=== PATIENT | male | born 1955 | race Caucasian/White ===

== ENCOUNTER 2019-02-23 14:09 | Inpatient (IN) | payer OTHER ==
[~2019-02-23] VITALS: Ht 177.8 cm; Wt 62.4 kg
[2019-02-23] MEDS ORDERED: SODIUM CHLORIDE 0.9% 1,000 ML IV ONE (14:28)
[2019-02-23] MEDS ORDERED: PLEASE ENTER HEIGHT AND WEIGHT MC SCH (15:00)
[2019-02-23 15:11] LABS: BASOPHILS # (AUTO) 0.12 x10^3/uL (0-0.1); BASOPHILS % (AUTO) 1 % (0-1); EOSINOPHILS % (AUTO) 0 % (1-7); LYMPHOCYTES # (AUTO) 0.89 x10^3/uL (1-3.4); LYMPHOCYTES % (AUTO) 10 % (22-44); MD NO; MEAN CORPUSCULAR HEMOGLOBIN 33.1 pg (27.5-34.5); MEAN CORPUSCULAR HGB CONC 33.5 g/dL (33.2-36.2); MEAN CORPUSCULAR VOLUME 98.8 fL (81-97); MEAN PLATELET VOLUME 7.5 fL (7.4-10.4); MONOCYTES # (AUTO) 0.79 x10^3/uL (0.2-0.8); MONOCYTES % (AUTO) 9 % (2-9); NEUTROPHILS # (AUTO) 7.42 x10^3/uL (1.8-6.8); NEUTROPHILS % (AUTO) 81 % (42-75); PLATELET COUNT 315 x10^3/uL (130-400); RED CELL DISTRIBUTION WIDTH 13.6 % (9.4-14.8)
--- NOTE | 2019-02-23 15:15 | NUR ---
THIS IS A 63 YO M SENT FROM [facility] FOR POSSIBLE PNA, LUNG MASS AND SOBX4 DAYS. PATIENT IS IN NO ACUTE DISTRESS. PATIENT RESTING ON GURNEY CONVERSING WITH STAFF. CALL LIGHT IN REACH. DENIES FURTHER NEEDS AT THIS TIME.
[2019-02-23 15:22] LABS: ALBUMIN 3.6 g/dL (3.4-5.0); ANION GAP 10 mmol/L (5-15); CALCIUM 8.1 mg/dL (8.5-10.1); CHLORIDE 100 mmol/L (98-107); CREATININE 0.66 mg/dL (0.7-1.3)
--- NOTE | 2019-02-23 15:22 | NUR ---
PIV STARTED, LABS DRAWN, 1L NS STARTED.
[2019-02-23] MEDS ORDERED: MORPHINE SULFATE 4 MG/ML, 1ML ONE (15:29)
[2019-02-23] MEDS ORDERED: ACETAMINOPHEN 500 MG TABLET ONE (15:29)
[2019-02-23] MEDS ORDERED: MORPHINE SULFATE 4 MG/ML, 1ML IVPush PRN (15:30)
[2019-02-23] MEDS ORDERED: ACETAMINOPHEN 500 MG TABLET PO ONE (15:30)
--- NOTE | 2019-02-23 15:35 | NUR ---
PATIENT MEDICATED PER EMAR.
--- NOTE | 2019-02-23 15:38 | NUR ---
O2 SAT 89% ROOM AIR. PATIENT PLACED ON 2L NC. NOW 92%.
[2019-02-23 15:53] LABS: ALBUMIN 3.6 g/dL (3.4-5.0); BILIRUBIN, DIRECT 0.3 mg/dL (0.1-0.2)
[2019-02-23 15:56] LABS: BILIRUBIN,INDIRECT 0.8 mg/dL (0.0-2.0); BILIRUBIN,TOTAL 1.1 mg/dL (0.2-1.0); TOTAL PROTEIN 7.4 g/dL (6.4-8.2)
[2019-02-23] MEDS ORDERED: OMNIPAQUE 350 MG/ML, 100ML BOTTLE ONE (16:11)
[2019-02-23] MEDS ORDERED: CEFTRIAXONE PMX 1GM/50ML 50 ML ONE (16:48)
[2019-02-23] MEDS ORDERED: CEFTRIAXONE PMX 1GM/50ML 50 ML IV ONE (17:00)
[2019-02-23] MEDS ORDERED: AZITHROMYCIN 500 MG in SODIUM CHLORIDE 0.9% 250 ML IV ONE (17:00)
[2019-02-23] MEDS ORDERED: ONDANSETRON 2MG/ML, 2ML IVPush PRN (17:30)
[2019-02-23] MEDS ORDERED: DOCUSATE 100 MG CAPSULE PO PRN (17:30)
[2019-02-23] MEDS ORDERED: LABETALOL 5MG/ML, 20ML IVPush PRN (17:30)
[2019-02-23] MEDS ORDERED: POLYETHYLENE GLYCOL 17 GM PACKET PO PRN (17:30)
[2019-02-23] MEDS ORDERED: METOCLOPRAMIDE 5 MG/ML, 2ML IVPush PRN (17:30)
[2019-02-23] MEDS ORDERED: hydrALAzine 20 MG/ML, 1ML IVPush PRN (17:30)
[2019-02-23] MEDS ORDERED: POTASSIUM CHLORIDE 20 MEQ TAB.ER.PRT PO ONE (18:00)
[2019-02-23] MEDS ORDERED: NS + 20MEQ KCL 1,000 ML IV SCH (18:00)
[2019-02-23 20:18] VITALS: BP 149/94
[2019-02-23] MEDS: NICOTINE 21 MG/24 HR PATCH.TD24 TD SCH (20:46)
[2019-02-23] MEDS: HEPARIN 5,000 UNITS/ML, 1ML SQ SCH (20:47)
[2019-02-24] MEDS ORDERED: GUAIFENESIN/DM 200-20MG, 10ML UDC PO PRN
[2019-02-24] MEDS ORDERED: TEMAZEPAM 15 MG CAPSULE PO PRN
[2019-02-24 00:22] VITALS: BP 165/112
[2019-02-24 00:56] VITALS: BP 146/92
[2019-02-24] MEDS ORDERED: LABETALOL 5 MG/ML SYR. (IV ONLY) IVPush PRN (01:30)
[2019-02-24] MEDS: HEPARIN 5,000 UNITS/ML, 1ML SQ SCH ×3 (02:13→22:22)
[2019-02-24 04:58] LABS: BASOPHILS # (AUTO) 0.14 x10^3/uL (0-0.1); BASOPHILS % (AUTO) 1 % (0-1); EOSINOPHILS # (AUTO) 0.01 x10^3/uL (0-0.4); EOSINOPHILS % (AUTO) 0 % (1-7); LYMPHOCYTES # (AUTO) 0.89 x10^3/uL (1-3.4); LYMPHOCYTES % (AUTO) 6 % (22-44); MD NO; MEAN CORPUSCULAR HEMOGLOBIN 32.7 pg (27.5-34.5); MEAN CORPUSCULAR HGB CONC 32.7 g/dL (33.2-36.2); MEAN CORPUSCULAR VOLUME 99.9 fL (81-97); MEAN PLATELET VOLUME 8.1 fL (7.4-10.4); MONOCYTES # (AUTO) 0.58 x10^3/uL (0.2-0.8); MONOCYTES % (AUTO) 4 % (2-9); NEUTROPHILS # (AUTO) 12.72 x10^3/uL (1.8-6.8); NEUTROPHILS % (AUTO) 89 % (42-75); PLATELET COUNT 284 x10^3/uL (130-400); RED CELL DISTRIBUTION WIDTH 13.9 % (9.4-14.8)
[2019-02-24 05:00] LABS: ALBUMIN 3.4 g/dL (3.4-5.0); ANION GAP 5 mmol/L (5-15); CHLORIDE 103 mmol/L (98-107)
[2019-02-24 05:03] LABS: ALANINE AMINOTRANSFERASE 15 U/L (12-78); ALKALINE PHOSPHATASE 181 U/L (45-117); BILIRUBIN,TOTAL 1.5 mg/dL (0.2-1.0); CREATININE 0.66 mg/dL (0.7-1.3); TOTAL PROTEIN 7.2 g/dL (6.4-8.2)
[2019-02-24] MEDS ORDERED: ALBUTEROL SULFATE 2.5 MG/3 ML ONE (06:51)
[2019-02-24] MEDS: ALBUTEROL SULFATE 2.5 MG/3 ML NPPB SCH ×3 (06:55→16:00)
[2019-02-24] MEDS ORDERED: methylPREDNISolone SOD SUCC 40 MG/ML IV ONE (07:00)
[2019-02-24] MEDS ORDERED: FUROSEMIDE 40 MG/4 ML IV ONE ×2 (07:00→15:30)
[2019-02-24 07:20] VITALS: BP 154/105
[2019-02-24] MEDS ORDERED: MAGNESIUM SULFATE PMX 2GM/50ML 50 ML IV ONE (07:30)
[2019-02-24] MEDS ORDERED: ALBUTEROL SULFATE 2.5 MG/3 ML NPPB PRN (07:30)
[2019-02-24] MEDS: methylPREDNISolone SOD SUCC 125 MG/2 ML IVPush SCH ×3 (07:54→20:10)
[2019-02-24] MEDS ORDERED: AZITHROMYCIN 250 MG TABLET PO SCH (09:00)
[2019-02-24] MEDS: PIPERACILLIN/TAZO/PMX 3.375GM 50 ML IV SCH ×3 (09:51→23:26)
[2019-02-24] MEDS: NEUTRA PHOS K 250 MG TABLET PO SCH ×2 (09:51→20:10)
[2019-02-24 12:13] VITALS: BP 149/94
[2019-02-24] MEDS ORDERED: FUROSEMIDE 20 MG/2 ML ONE (15:17)
[2019-02-24] MEDS ORDERED: VANCOMYCIN PER PHARMACY MC PRN (15:30)
[2019-02-24] MEDS ORDERED: PHARMACOKINETIC MONITORING MC PRN (16:00)
[2019-02-24] MEDS ORDERED: PHARMACOKINETIC CONSULTATION MC ONE (16:00)
[2019-02-24] MEDS ORDERED: CEFTRIAXONE PMX 1GM/50ML 50 ML IV SCH (17:00)
[2019-02-24] MEDS ORDERED: SODIUM CHLORIDE 0.9%, 500ML IVBOLUS ONE (17:00)
[2019-02-24] MEDS: NICOTINE 21 MG/24 HR PATCH.TD24 TD SCH (17:51)
[2019-02-24] MEDS: VANCOMYCIN 1,300 MG in SODIUM CHLORIDE 0.9% 250 ML IV SCH (18:37)
[2019-02-25] VITALS (7 sets, daily range): BP systolic 120–145; BP diastolic 74–90
[2019-02-25] MEDS: methylPREDNISolone SOD SUCC 125 MG/2 ML IVPush SCH ×4 (02:14→20:47)
[2019-02-25] MEDS ORDERED: LORazepam 2 MG/ML, 1ML IVPush ONE (04:00)
[2019-02-25] MEDS ORDERED: LORazepam 2 MG/ML, 1ML ONE (04:06)
[2019-02-25 04:21] LABS: BASOPHILS # (AUTO) 0.29 x10^3/uL (0-0.1); BASOPHILS % (AUTO) 2 % (0-1); EOSINOPHILS % (AUTO) 0 % (1-7); LYMPHOCYTES # (AUTO) 0.67 x10^3/uL (1-3.4); LYMPHOCYTES % (AUTO) 5 % (22-44); MD NO; MEAN CORPUSCULAR HEMOGLOBIN 33.2 pg (27.5-34.5); MEAN CORPUSCULAR HGB CONC 33.3 g/dL (33.2-36.2); MEAN CORPUSCULAR VOLUME 99.9 fL (81-97); MEAN PLATELET VOLUME 7.9 fL (7.4-10.4); MONOCYTES # (AUTO) 0.39 x10^3/uL (0.2-0.8); MONOCYTES % (AUTO) 3 % (2-9); NEUTROPHILS % (AUTO) 90 % (42-75); PLATELET COUNT 294 x10^3/uL (130-400); RED BLOOD COUNT 5.04 x10^6/uL (4.38-5.82); RED CELL DISTRIBUTION WIDTH 14.1 % (9.4-14.8)
[2019-02-25] MEDS: VANCOMYCIN 1,300 MG in SODIUM CHLORIDE 0.9% 250 ML IV SCH (04:25)
[2019-02-25 04:36] LABS: ALANINE AMINOTRANSFERASE 16 U/L (12-78); ALBUMIN 3.4 g/dL (3.4-5.0); ANION GAP 10 mmol/L (5-15); CALCIUM 8.4 mg/dL (8.5-10.1); CHLORIDE 103 mmol/L (98-107); CREATININE 0.76 mg/dL (0.7-1.3)
[2019-02-25 04:39] LABS: ALKALINE PHOSPHATASE 150 U/L (45-117); BILIRUBIN,TOTAL 1.3 mg/dL (0.2-1.0); TOTAL PROTEIN 7.8 g/dL (6.4-8.2)
[2019-02-25] MEDS: HEPARIN 5,000 UNITS/ML, 1ML SQ SCH ×3 (05:59→20:48)
[2019-02-25] MEDS: PIPERACILLIN/TAZO/PMX 3.375GM 50 ML IV SCH (06:01)
[2019-02-25] MEDS: ALBUTEROL SULFATE 2.5 MG/3 ML NPPB SCH ×3 (07:55→19:55)
[2019-02-25] MEDS: POTASSIUM CHLORIDE 20 MEQ TAB.ER.PRT PO SCH ×2 (08:20→16:40)
[2019-02-25] MEDS: CEFTRIAXONE PMX 1GM/50ML 50 ML IV SCH (08:20)
[2019-02-25] MEDS: AZITHROMYCIN 500 MG in SODIUM CHLORIDE 0.9% 250 ML IV SCH (09:05)
[2019-02-25] MEDS: FUROSEMIDE 40 MG/4 ML IV SCH (16:41)
[2019-02-25] MEDS: NICOTINE 21 MG/24 HR PATCH.TD24 TD SCH (16:42)
[2019-02-26 00:54] VITALS: BP 135/83
[2019-02-26] MEDS: methylPREDNISolone SOD SUCC 125 MG/2 ML IVPush SCH ×4 (03:45→20:17)
[2019-02-26] MEDS: HEPARIN 5,000 UNITS/ML, 1ML SQ SCH ×3 (05:19→20:16)
[2019-02-26 06:39] VITALS: BP 115/63
[2019-02-26 06:40] LABS: ANION GAP 6 mmol/L (5-15); CALCIUM 8.2 mg/dL (8.5-10.1); CHLORIDE 105 mmol/L (98-107)
[2019-02-26 06:41] LABS: CREATININE 0.68 mg/dL (0.7-1.3)
[2019-02-26] MEDS: CEFTRIAXONE PMX 1GM/50ML 50 ML IV SCH (07:49)
[2019-02-26] MEDS ORDERED: POTASSIUM CHLORIDE 20 MEQ TAB.ER.PRT PO ONE (08:30)
[2019-02-26] MEDS: ALBUTEROL SULFATE 2.5 MG/3 ML NPPB SCH ×4 (08:45→20:36)
[2019-02-26] MEDS: AZITHROMYCIN 500 MG in SODIUM CHLORIDE 0.9% 250 ML IV SCH (09:42)
[2019-02-26] MEDS: FUROSEMIDE 40 MG/4 ML IV SCH ×2 (09:42→16:50)
[2019-02-26 15:03] VITALS: BP 128/80
[2019-02-26] MEDS: NICOTINE 21 MG/24 HR PATCH.TD24 TD SCH (16:51)
[2019-02-26 19:10] VITALS: BP 130/82
[2019-02-27 00:39] VITALS: BP 138/84
[2019-02-27] MEDS: methylPREDNISolone SOD SUCC 125 MG/2 ML IVPush SCH (01:58)
[2019-02-27] MEDS: HEPARIN 5,000 UNITS/ML, 1ML SQ SCH ×3 (03:58→20:59)
[2019-02-27 06:24] LABS: CHLORIDE 104 mmol/L (98-107)
[2019-02-27 06:28] LABS: ANION GAP 5 mmol/L (5-15); CALCIUM 8.4 mg/dL (8.5-10.1); CREATININE 0.65 mg/dL (0.7-1.3)
[2019-02-27] MEDS: ALBUTEROL SULFATE 2.5 MG/3 ML NPPB SCH ×4 (07:21→20:41)
[2019-02-27] MEDS: POTASSIUM CHLORIDE 20 MEQ TAB.ER.PRT PO SCH ×2 (07:37→17:05)
[2019-02-27] MEDS: CEFTRIAXONE PMX 1GM/50ML 50 ML IV SCH (07:37)
[2019-02-27] MEDS: FUROSEMIDE 40 MG/4 ML IV SCH ×2 (07:38→17:05)
[2019-02-27] MEDS: methylPREDNISolone SOD SUCC 40 MG/ML IVPush SCH ×2 (07:38→20:59)
[2019-02-27 07:41] VITALS: BP 141/82
[2019-02-27] MEDS: AZITHROMYCIN 500 MG in SODIUM CHLORIDE 0.9% 250 ML IV SCH (11:15)
[2019-02-27 13:04] VITALS: BP 121/72
[2019-02-27] MEDS: NICOTINE 21 MG/24 HR PATCH.TD24 TD SCH (17:05)
[2019-02-27 18:52] VITALS: BP 126/81
[2019-02-28 00:55] VITALS: BP 136/85
[2019-02-28] MEDS: HEPARIN 5,000 UNITS/ML, 1ML SQ SCH ×3 (04:33→20:18)
[2019-02-28 06:01] LABS: ANION GAP 4 mmol/L (5-15); CALCIUM 8.6 mg/dL (8.5-10.1); CHLORIDE 102 mmol/L (98-107); CREATININE 0.68 mg/dL (0.7-1.3)
[2019-02-28 06:11] LABS: MD YES; MEAN CORPUSCULAR HGB CONC 33.3 g/dL (33.2-36.2); MEAN CORPUSCULAR VOLUME 99.3 fL (81-97); MEAN PLATELET VOLUME 7.7 fL (7.4-10.4); PLATELET COUNT 231 x10^3/uL (130-400); RED BLOOD COUNT 4.25 x10^6/uL (4.38-5.82); RED CELL DISTRIBUTION WIDTH 13.8 % (9.4-14.8)
[2019-02-28 06:13] LABS: BAND#(MANUAL) 0.08 x10^3/uL; BANDS%(MANUAL) 1 % (0-7); LYMPH#(MANUAL) 0.49 x10^3/uL (1-3.4); LYMPHS% (MANUAL) 6 % (22-44); MONOS#(MANUAL) 0.41 x10^3/uL (0.3-2.7); MONOS% (MANUAL) 5 % (2-9); REACTIVE LYMPHS # (MANUAL) 0.08 x10^3/uL (0-0); REACTIVE LYMPHS % (MANUAL) 1 % (0-0); SEG#(MANUAL) 7.13 x10^3/uL (1.8-6.8); SEGS% (MANUAL) 87 % (42-75)
[2019-02-28 06:14] LABS: <PLATELET ESTIMATE> ADEQUATE; <PLT MORPHOLOGY> NORMAL PLT MORPH; <RBC MORPHOLOGY> NORMAL
[2019-02-28] MEDS: ALBUTEROL SULFATE 2.5 MG/3 ML NPPB SCH (07:00)
[2019-02-28] MEDS: FUROSEMIDE 40 MG/4 ML IV SCH ×2 (07:14→17:13)
[2019-02-28] MEDS: CEFTRIAXONE PMX 1GM/50ML 50 ML IV SCH (07:14)
[2019-02-28 08:18] VITALS: BP 135/84
[2019-02-28] MEDS: methylPREDNISolone SOD SUCC 40 MG/ML IVPush SCH ×2 (09:51→20:18)
[2019-02-28] MEDS ORDERED: LIDOCAINE 1%, 10ML ONE (09:51)
[2019-02-28] MEDS: AZITHROMYCIN 500 MG in SODIUM CHLORIDE 0.9% 250 ML IV SCH (10:56)
[2019-02-28 14:21] VITALS: BP 131/82
[2019-02-28] MEDS: NICOTINE 21 MG/24 HR PATCH.TD24 TD SCH (17:12)
[2019-02-28 19:25] VITALS: BP 125/80
[2019-03-01 01:57] VITALS: BP 132/80
[2019-03-01] MEDS: HEPARIN 5,000 UNITS/ML, 1ML SQ SCH ×3 (04:48→20:19)
[2019-03-01 06:39] VITALS: BP 136/84
[2019-03-01 07:03] LABS: BASOPHILS # (AUTO) 0.12 x10^3/uL (0-0.1); BASOPHILS % (AUTO) 1 % (0-1); EOSINOPHILS # (AUTO) 0.01 x10^3/uL (0-0.4); EOSINOPHILS % (AUTO) 0 % (1-7); LYMPHOCYTES # (AUTO) 0.72 x10^3/uL (1-3.4); LYMPHOCYTES % (AUTO) 8 % (22-44); MD NO; MEAN CORPUSCULAR HEMOGLOBIN 32.7 pg (27.5-34.5); MEAN CORPUSCULAR HGB CONC 32.7 g/dL (33.2-36.2); MEAN CORPUSCULAR VOLUME 99.8 fL (81-97); MEAN PLATELET VOLUME 8.4 fL (7.4-10.4); MONOCYTES # (AUTO) 0.76 x10^3/uL (0.2-0.8); MONOCYTES % (AUTO) 8 % (2-9); NEUTROPHILS # (AUTO) 7.38 x10^3/uL (1.8-6.8); NEUTROPHILS % (AUTO) 82 % (42-75); PLATELET COUNT 222 x10^3/uL (130-400); RED BLOOD COUNT 4.83 x10^6/uL (4.38-5.82); RED CELL DISTRIBUTION WIDTH 13.7 % (9.4-14.8)
[2019-03-01 07:21] LABS: CHLORIDE 100 mmol/L (98-107)
[2019-03-01 07:30] LABS: ANION GAP 4 mmol/L (5-15); CALCIUM 8.9 mg/dL (8.5-10.1); CREATININE 0.59 mg/dL (0.7-1.3)
[2019-03-01] MEDS: CEFTRIAXONE PMX 1GM/50ML 50 ML IV SCH (08:06)
[2019-03-01] MEDS: methylPREDNISolone SOD SUCC 40 MG/ML IVPush SCH (08:06)
[2019-03-01] MEDS: FUROSEMIDE 40 MG/4 ML IV SCH ×2 (08:06→17:14)
[2019-03-01] MEDS: AZITHROMYCIN 500 MG in SODIUM CHLORIDE 0.9% 250 ML IV SCH (09:13)
[2019-03-01 12:19] VITALS: BP 120/76
[2019-03-01] MEDS: CARVEDILOL 3.125 MG TABLET PO SCH (17:14)
[2019-03-01] MEDS: NICOTINE 21 MG/24 HR PATCH.TD24 TD SCH (17:14)
[2019-03-01 19:23] VITALS: BP 123/82
[2019-03-02 00:35] VITALS: BP 115/75
[2019-03-02] MEDS: HEPARIN 5,000 UNITS/ML, 1ML SQ SCH ×4 (03:30→20:03)
[2019-03-02] MEDS: CARVEDILOL 3.125 MG TABLET PO SCH (05:58)
[2019-03-02 06:27] LABS: BASOPHILS # (AUTO) 0.17 x10^3/uL (0-0.1); BASOPHILS % (AUTO) 2 % (0-1); EOSINOPHILS # (AUTO) 0.14 x10^3/uL (0-0.4); EOSINOPHILS % (AUTO) 2 % (1-7); LYMPHOCYTES # (AUTO) 1.29 x10^3/uL (1-3.4); LYMPHOCYTES % (AUTO) 14 % (22-44); MD NO; MEAN CORPUSCULAR HEMOGLOBIN 32.7 pg (27.5-34.5); MEAN CORPUSCULAR HGB CONC 32.6 g/dL (33.2-36.2); MEAN CORPUSCULAR VOLUME 100.4 fL (81-97); MEAN PLATELET VOLUME 7.9 fL (7.4-10.4); MONOCYTES # (AUTO) 1.44 x10^3/uL (0.2-0.8); MONOCYTES % (AUTO) 16 % (2-9); NEUTROPHILS # (AUTO) 6.08 x10^3/uL (1.8-6.8); NEUTROPHILS % (AUTO) 67 % (42-75); PLATELET COUNT 247 x10^3/uL (130-400); RED BLOOD COUNT 4.97 x10^6/uL (4.38-5.82); RED CELL DISTRIBUTION WIDTH 13.9 % (9.4-14.8)
[2019-03-02 06:40] LABS: ANION GAP 4 mmol/L (5-15); CALCIUM 8.7 mg/dL (8.5-10.1); CHLORIDE 97 mmol/L (98-107); CREATININE 0.78 mg/dL (0.7-1.3)
[2019-03-02 07:47] VITALS: BP 116/80
[2019-03-02] MEDS: CEFTRIAXONE PMX 1GM/50ML 50 ML IV SCH (08:00)
[2019-03-02] MEDS: FUROSEMIDE 40 MG/4 ML IV SCH ×2 (08:00→17:12)
[2019-03-02] MEDS ORDERED: methylPREDNISolone SOD SUCC 40 MG/ML IVPush SCH (09:00)
[2019-03-02] MEDS: AZITHROMYCIN 500 MG in SODIUM CHLORIDE 0.9% 250 ML IV SCH (09:45)
[2019-03-02] MEDS: LISINOPRIL 10 MG TABLET PO SCH (12:30)
[2019-03-02] MEDS ORDERED: GADOTERATE 7.5 MMOL/15 ML SYR ONE (13:41)
[2019-03-02 14:17] VITALS: BP 103/74
[2019-03-02] MEDS: NICOTINE 21 MG/24 HR PATCH.TD24 TD SCH (17:12)
[2019-03-02] MEDS: CARVEDILOL 6.25 MG TABLET PO SCH ×2 (17:13→17:48)
[2019-03-02 19:01] VITALS: BP 110/77
[2019-03-03] MEDS: HEPARIN 5,000 UNITS/ML, 1ML SQ SCH ×3 (00:37→20:14)
[2019-03-03 01:10] VITALS: BP 118/74
[2019-03-03 05:47] LABS: ANION GAP 3 mmol/L (5-15); CALCIUM 8.7 mg/dL (8.5-10.1); CHLORIDE 99 mmol/L (98-107)
[2019-03-03 05:54] LABS: CHOL/HDL RATIO 2.6; CHOLESTEROL, TOTAL 162 mg/dL (140-239); CREATININE 0.79 mg/dL (0.7-1.3); HDL CHOL % 38 % (26-37); HDL CHOLESTEROL (DIRECT) 62 mg/dL (40-60); LDL CHOLESTEROL,CALCULATED 82 mg/dL (54-169); LDL/HDL RATIO 1.3 (0.5-3.0); TRIGLYCERIDES 90 mg/dL (50-200); VLDL CHOLESTEROL 18 mg/dL (0-25)
[2019-03-03] MEDS: CARVEDILOL 6.25 MG TABLET PO SCH ×2 (05:58→17:07)
[2019-03-03 08:03] VITALS: BP 73/74
[2019-03-03] MEDS ORDERED: NALOXONE 1 MG/ML, 2ML ONE (08:32)
[2019-03-03] MEDS ORDERED: FENTANYL PF 100 MCG/2ML ONE (08:32)
[2019-03-03] MEDS ORDERED: FLUMAZENIL 0.1 MG/1 ML, 5ML ONE (08:32)
[2019-03-03] MEDS ORDERED: MIDAZOLAM 1 MG/ML, 5ML ONE (08:32)
[2019-03-03] MEDS ORDERED: LIDOCAINE 1%, 10ML ONE (09:10)
[2019-03-03 10:37] VITALS: BP 122/78
[2019-03-03] MEDS: LISINOPRIL 10 MG TABLET PO SCH (10:39)
[2019-03-03] MEDS: FUROSEMIDE 40 MG/4 ML IV SCH (10:39)
[2019-03-03] MEDS: AZITHROMYCIN 500 MG in SODIUM CHLORIDE 0.9% 250 ML IV SCH (10:49)
[2019-03-03] MEDS: CEFTRIAXONE PMX 1GM/50ML 50 ML IV SCH (11:41)
[2019-03-03 14:00] VITALS: BP 95/60
[2019-03-03] MEDS: OXYcodone IR 5MG TABLET PO PRN ×2 (15:03→20:38)
[2019-03-03] MEDS: NICOTINE 21 MG/24 HR PATCH.TD24 TD SCH (17:07)
[2019-03-03 20:32] VITALS: BP 92/58
[2019-03-03] MEDS: ATORVASTATIN 40 MG TABLET PO SCH (20:38)
[2019-03-04] MEDS: OXYcodone IR 5MG TABLET PO PRN ×4 (00:42→20:34)
[2019-03-04 02:02] VITALS: BP 100/61
[2019-03-04] MEDS: HEPARIN 5,000 UNITS/ML, 1ML SQ SCH ×3 (04:30→20:33)
[2019-03-04] MEDS: CARVEDILOL 6.25 MG TABLET PO SCH ×2 (05:53→17:04)
[2019-03-04 08:00] VITALS: BP 110/74
[2019-03-04] MEDS: LISINOPRIL 10 MG TABLET PO SCH (09:10)
[2019-03-04] MEDS: FUROSEMIDE 40 MG TABLET PO SCH (09:11)
[2019-03-04 12:38] VITALS: BP 93/54
[2019-03-04] MEDS: NICOTINE 21 MG/24 HR PATCH.TD24 TD SCH (17:03)
[2019-03-04 19:47] VITALS: BP 101/62
[2019-03-04] MEDS: ATORVASTATIN 40 MG TABLET PO SCH (20:33)
[2019-03-05 01:52] VITALS: BP 113/68
[2019-03-05] MEDS: HEPARIN 5,000 UNITS/ML, 1ML SQ SCH ×3 (04:41→20:32)
[2019-03-05] MEDS: CARVEDILOL 6.25 MG TABLET PO SCH ×2 (05:34→17:29)
[2019-03-05] MEDS: OXYcodone IR 5MG TABLET PO PRN ×2 (05:35→20:32)
[2019-03-05 08:46] VITALS: BP 96/67
[2019-03-05] MEDS: LISINOPRIL 10 MG TABLET PO SCH (09:00)
[2019-03-05] MEDS: FUROSEMIDE 40 MG TABLET PO SCH (09:55)
[2019-03-05 15:59] VITALS: BP 103/62
[2019-03-05] MEDS: NICOTINE 21 MG/24 HR PATCH.TD24 TD SCH (17:30)
[2019-03-05 19:10] VITALS: BP 104/61
[2019-03-05] MEDS: ATORVASTATIN 40 MG TABLET PO SCH (20:32)
[2019-03-06 01:55] VITALS: BP 122/76
[2019-03-06] MEDS: HEPARIN 5,000 UNITS/ML, 1ML SQ SCH ×3 (04:45→21:27)
[2019-03-06] MEDS: CARVEDILOL 6.25 MG TABLET PO SCH ×2 (06:20→17:51)
[2019-03-06 08:34] VITALS: BP 116/74
[2019-03-06] MEDS: LISINOPRIL 10 MG TABLET PO SCH (08:44)
[2019-03-06] MEDS: FUROSEMIDE 40 MG TABLET PO SCH (08:44)
[2019-03-06] MEDS ORDERED: REGADENOSON 0.4 MG/5 ML SYRINGE ONE (11:49)
[2019-03-06] MEDS: OXYcodone IR 5MG TABLET PO PRN ×2 (13:27→21:26)
[2019-03-06 13:41] VITALS: BP 125/77
[2019-03-06] MEDS: NICOTINE 21 MG/24 HR PATCH.TD24 TD SCH (17:52)
[2019-03-06 18:45] VITALS: BP 111/71
[2019-03-06] MEDS: ATORVASTATIN 40 MG TABLET PO SCH (21:26)
[2019-03-07 00:02] VITALS: BP 115/72
[2019-03-07] MEDS: OXYcodone IR 5MG TABLET PO PRN ×2 (02:30→21:27)
[2019-03-07 05:03] LABS: BASOPHILS # (AUTO) 0.31 x10^3/uL (0-0.1); BASOPHILS % (AUTO) 3 % (0-1); EOSINOPHILS # (AUTO) 0.08 x10^3/uL (0-0.4); EOSINOPHILS % (AUTO) 1 % (1-7); LYMPHOCYTES # (AUTO) 1.13 x10^3/uL (1-3.4); LYMPHOCYTES % (AUTO) 10 % (22-44); MD NO; MEAN CORPUSCULAR HEMOGLOBIN 32.5 pg (27.5-34.5); MEAN CORPUSCULAR VOLUME 98.5 fL (81-97); MEAN PLATELET VOLUME 7.6 fL (7.4-10.4); MONOCYTES # (AUTO) 1.44 x10^3/uL (0.2-0.8); MONOCYTES % (AUTO) 13 % (2-9); NEUTROPHILS # (AUTO) 8.06 x10^3/uL (1.8-6.8); NEUTROPHILS % (AUTO) 73 % (42-75); PLATELET COUNT 329 x10^3/uL (130-400); RED BLOOD COUNT 4.29 x10^6/uL (4.38-5.82); RED CELL DISTRIBUTION WIDTH 13.9 % (9.4-14.8)
[2019-03-07 05:24] LABS: ALANINE AMINOTRANSFERASE 58 U/L (12-78); ALBUMIN 3.1 g/dL (3.4-5.0); ALKALINE PHOSPHATASE 66 U/L (45-117); BILIRUBIN,TOTAL 0.9 mg/dL (0.2-1.0); CALCIUM 8.8 mg/dL (8.5-10.1); TOTAL PROTEIN 6.4 g/dL (6.4-8.2)
[2019-03-07 05:41] LABS: ANION GAP 5 mmol/L (5-15); CHLORIDE 99 mmol/L (98-107)
[2019-03-07] MEDS: HEPARIN 5,000 UNITS/ML, 1ML SQ SCH ×3 (06:18→23:13)
[2019-03-07] MEDS: CARVEDILOL 6.25 MG TABLET PO SCH ×2 (06:18→17:24)
[2019-03-07 06:21] VITALS: BP 117/72
[2019-03-07] MEDS: FUROSEMIDE 40 MG TABLET PO SCH (08:58)
[2019-03-07] MEDS: LISINOPRIL 10 MG TABLET PO SCH (08:58)
[2019-03-07 13:02] VITALS: BP 92/59
[2019-03-07] MEDS: NICOTINE 21 MG/24 HR PATCH.TD24 TD SCH (17:24)
[2019-03-07 20:14] VITALS: BP 97/55
[2019-03-07] MEDS: ATORVASTATIN 40 MG TABLET PO SCH (21:27)
[2019-03-08 02:11] VITALS: BP 100/62
[2019-03-08 05:43] VITALS: BP 107/69
[2019-03-08] MEDS: CARVEDILOL 6.25 MG TABLET PO SCH (05:46)
[2019-03-08 06:30] VITALS: BP 114/69
[2019-03-08] MEDS: HEPARIN 5,000 UNITS/ML, 1ML SQ SCH (07:51)
[2019-03-08] MEDS: LISINOPRIL 10 MG TABLET PO SCH (08:46)
[2019-03-08] MEDS: FUROSEMIDE 40 MG TABLET PO SCH (08:46)
[2019-03-08] MEDS ORDERED: CARV6.2512 PO (11:12)
[2019-03-08] MEDS ORDERED: PRED5TAB PO (11:12)
[2019-03-08] MEDS ORDERED: LISI-167 PO (11:12)
[2019-03-08] MEDS ORDERED: FURO40TA6 PO (11:12)
[2019-03-08] MEDS ORDERED: ATOR40TA78 PO (11:12)
== END 2019-03-08 13:10 | disposition home or self-care (01) | DRG 180 ==
LOC: ED 16:19 → EDIP 16:38 → 4NE 18:12 → 4NW 20:43 → 4WST 02-24 08:04 → CCU 02-24 15:43 → 4WST 02-25 18:21 → DCLOUNGE 03-08 13:02
PROVIDERS: ADMIT Family Medicine; ATTEND Internal Medicine
PROC: 0W993ZZ Drainage of Right Pleural Cavity, Percutaneous Approach (ICD-10-PCS; principal; 2019-02-28)
PROC: 0BBK3ZX Excision of Right Lung, Percutaneous Approach, Diagnostic (ICD-10-PCS; 2019-03-03)
PROC: 0W9930Z Drainage of Right Pleural Cavity with Drainage Device, Percutaneous Approach (ICD-10-PCS; 2019-03-03)
DX: C34.91 Malignant neoplasm of unspecified part of right bronchus or lung (principal); I50.43 Acute on chronic combined systolic (congestive) and diastolic (congestive) heart failure; J18.9 Pneumonia, unspecified organism; J96.01 Acute respiratory failure with hypoxia; C79.31 Secondary malignant neoplasm of brain; E87.4 Mixed disorder of acid-base balance; I42.9 Cardiomyopathy, unspecified; J44.0 Chronic obstructive pulmonary disease with (acute) lower respiratory infection; J93.9 Pneumothorax, unspecified; C78.1 Secondary malignant neoplasm of mediastinum; Z80.0 Family history of malignant neoplasm of digestive organs; Z82.3 Family history of stroke; E83.39 Other disorders of phosphorus metabolism; E86.0 Dehydration; E87.6 Hypokalemia; F10.10 Alcohol abuse, uncomplicated; Y90.9 Presence of alcohol in blood, level not specified; F17.210 Nicotine dependence, cigarettes, uncomplicated; J98.4 Other disorders of lung; R56.9 Unspecified convulsions
CPT/HCPCS: 32555; 32557; 36415; 36600; 82150; 82945; 83986; 84145; 89051; 93017; 99285; J3490; J7613; 32405; 32551; 70450; 70553; 71045; 71275; 77012; 78452; 80048; 80053; 80061; 80076; 82040; 82803; 82962; 83605; 83615; 83735; 84100; 84157; 84484; 85025; 87040; 87070; 87075; 87081; 87205; 88112; 88305; 88333; 88341; 88342; 93005; 93306; 94640; 99156; 99157; G0378; J0456; J0696; J1644; J1940; J2250; J2543; J2785; J3010; J3370; J3480; Q9967; A9502; A9575; C1729; J0360; J2060; J2270; J2310; J2920; J2930; J3475; J7030; J7050; J7512

== ENCOUNTER 2019-03-15 09:39 | Outpatient (CLI) | payer OTHER ==
[~2019-03-15 09:39] MED LIST: ATOR40TA78 PO; CARV6.2512 PO; FURO40TA6 PO; LISI-167 PO; PRED5TAB PO
[2019-03-15] MEDS ORDERED: GADOTERATE 7.5 MMOL/15 ML SYR ONE (10:41)
[2019-07-09] MEDS ORDERED: AZIT500T10 PO ×2 (09:31)
[2019-07-09] MEDS ORDERED: CEFD300C37 PO ×2 (09:31)
[2019-07-13] MEDS ORDERED: CEFD300C37 PO (11:41)
[2019-07-13] MEDS ORDERED: AZIT500T10 PO (11:41)
== END 2019-03-15 23:59 | disposition home or self-care (01) ==
LOC: CFH 09:39
PROVIDERS: ATTEND Radiology Radiation Oncology
DX: C79.31 Secondary malignant neoplasm of brain (principal); G31.89 Other specified degenerative diseases of nervous system
CPT/HCPCS: 70553; A9575

== ENCOUNTER 2019-04-21 11:35 | Day surgery (SDC) | payer OTHER ==
[~2019-04-21] VITALS: Ht 177.8 cm; Wt 64.6 kg
[2019-04-21] MEDS ORDERED: SODIUM CHLORIDE 0.9% 1,000 ML IV SCH (12:01)
[2019-04-21] MEDS ORDERED: LIDOCAINE 1%, 10ML ONE (12:22)
[2019-04-21] MEDS ORDERED: LIDOCAINE 1%, 20ML ONE (12:22)
[2019-04-21] MEDS ORDERED: CEFAZOLIN PMX 1GM/50ML 50 ML IV ONE (12:30)
[2019-04-21 12:34] VITALS: BP 132/82
[2019-04-21] MEDS ORDERED: LISI40TA PO (12:45)
[2019-04-21] MEDS ORDERED: TRILOGY INH (12:45)
[2019-04-21] MEDS ORDERED: FURO-92 PO (12:45)
[2019-04-21] MEDS ORDERED: CARV6.2512 PO (12:45)
[2019-04-21] MEDS ORDERED: ATOR40TA78 PO (12:45)
[2019-04-21] MEDS ORDERED: FLUMAZENIL 0.1 MG/1 ML, 5ML ONE (13:03)
[2019-04-21] MEDS ORDERED: NALOXONE 1 MG/ML, 2ML ONE (13:03)
[2019-04-21] MEDS ORDERED: FENTANYL PF 100 MCG/2ML ONE (13:03)
[2019-04-21] MEDS ORDERED: MIDAZOLAM 1 MG/ML, 5ML ONE (13:03)
== END 2019-04-21 15:00 | disposition home or self-care (01) ==
LOC: OUT 11:35
PROVIDERS: ATTEND Specialist
DX: C34.31 Malignant neoplasm of lower lobe, right bronchus or lung (principal); C79.31 Secondary malignant neoplasm of brain; I11.0 Hypertensive heart disease with heart failure; I50.9 Heart failure, unspecified; J90 Pleural effusion, not elsewhere classified; F17.210 Nicotine dependence, cigarettes, uncomplicated; Z79.899 Other long term (current) drug therapy; Z80.0 Family history of malignant neoplasm of digestive organs; Z82.3 Family history of stroke
CPT/HCPCS: 36561; 76937; 77001; 99156; 99157; C1788; C1894; J0690; J1642; J2250; J3010; J7030; J2310

== ENCOUNTER → 2019-04-28 | Outpatient (CLI) | payer OTHER ==
[~2019-04-28] MED LIST changes: +FURO-92 PO; +LISI40TA PO; +OMNIPAQUE 350 MG/ML, 100ML BOTTLE ONE; +TRILOGY INH
== END | disposition home or self-care (01) ==
LOC: CFH 08:27
PROVIDERS: ATTEND Specialist
DX: C34.31 Malignant neoplasm of lower lobe, right bronchus or lung (principal); C79.89 Secondary malignant neoplasm of other specified sites; S22.039A Unspecified fracture of third thoracic vertebra, initial encounter for closed fracture; S22.049A Unspecified fracture of fourth thoracic vertebra, initial encounter for closed fracture; S22.079A Unspecified fracture of T9-T10 vertebra, initial encounter for closed fracture; S22.089A Unspecified fracture of T11-T12 vertebra, initial encounter for closed fracture; S32.019A Unspecified fracture of first lumbar vertebra, initial encounter for closed fracture; J43.2 Centrilobular emphysema; R91.8 Other nonspecific abnormal finding of lung field; R59.9 Enlarged lymph nodes, unspecified; E04.1 Nontoxic single thyroid nodule; Y99.8 Other external cause status; R59.0 Localized enlarged lymph nodes; M85.88 Other specified disorders of bone density and structure, other site; X58.XXXA Exposure to other specified factors, initial encounter; Y93.89 Activity, other specified; Y92.89 Other specified places as the place of occurrence of the external cause
CPT/HCPCS: 71260; 74160; Q9967

== ENCOUNTER 2019-05-15 10:50 | Emergency (ER) | payer OTHER ==
[~2019-05-15] VITALS: Ht 177.8 cm; Wt 61.6 kg
[~2019-05-15 10:50] MED LIST changes: -OMNIPAQUE 350 MG/ML, 100ML BOTTLE ONE
[2019-05-15] MEDS ORDERED: POTA20TA91 PO (11:20)
[2019-05-15] MEDS ORDERED: FURO-93 PO (11:20)
[2019-05-15] MEDS ORDERED: FOLI-17 PO (11:20)
[2019-05-15] MEDS ORDERED: SPIR25TA5 PO (11:20)
[2019-05-15] MEDS ORDERED: LISI-167 PO (11:20)
--- NOTE | 2019-05-15 11:21 | NUR ---
[facility], sent in for abn kidney/lfts. hx lungs ca/brain ca stg 4. does not know his wbc count. 6 sessions radiation in apr, chemo started may 04. port R chest. c/o some sob but no worse than normal. lungs ctab, on ra at home. a&ox4 gcs 15 nad call monae in reach med rec upd awaiting md. as
--- NOTE | 2019-05-15 12:30 | NUR ---
awaiting xr/lab resutls. nad. call monae in reach. as
[2019-05-15 12:34] LABS: MICROSCOPIC NOT IND
[2019-05-15 12:37] LABS: CULTURE INDICATED? NO
[2019-05-15 13:10] LABS: ALANINE AMINOTRANSFERASE 95 U/L (12-78); ANION GAP 6 mmol/L (5-15); CALCIUM 8.2 mg/dL (8.5-10.1); CHLORIDE 99 mmol/L (98-107); CREATININE 1.11 mg/dL (0.7-1.3)
[2019-05-15 13:13] LABS: ALKALINE PHOSPHATASE 117 U/L (45-117); BILIRUBIN,TOTAL 0.6 mg/dL (0.2-1.0); TOTAL PROTEIN 6.9 g/dL (6.4-8.2)
--- NOTE | 2019-05-15 13:23 | NUR ---
us pending. lfts elevated per md, has records from pts outpt labwork. as
[2019-05-15 13:32] VITALS: BP 121/57
[2019-05-15 13:43] LABS: MEAN CORPUSCULAR HEMOGLOBIN 34.8 pg (27.5-34.5); MEAN CORPUSCULAR HGB CONC 34.3 g/dL (33.2-36.2); MEAN CORPUSCULAR VOLUME 101.6 fL (81-97); MEAN PLATELET VOLUME 7.2 fL (7.4-10.4); PLATELET COUNT 83 x10^3/uL (130-400); RED CELL DISTRIBUTION WIDTH 17.6 % (9.4-14.8)
[2019-05-15 13:44] LABS: MD YES
--- NOTE | 2019-05-15 13:46 | NUR ---
us neg. cbc pending. as
[2019-05-15 13:52] LABS: SEG#(MANUAL) 0.92 x10^3/uL (1.8-6.8); SEGS% (MANUAL) 28 % (42-75)
[2019-05-15 13:54] LABS: BAND#(MANUAL) 0.07 x10^3/uL; BANDS%(MANUAL) 2 % (0-7); BASOS#(MANUAL) 0.07 x10^3/uL (0-0.1); BASOS% (MANUAL) 2 % (0-1); LYMPH#(MANUAL) 1.32 x10^3/uL (1-3.4); LYMPHS% (MANUAL) 40 % (22-44); MONOS#(MANUAL) 0.83 x10^3/uL (0.3-2.7); MONOS% (MANUAL) 25 % (2-9); MYELOCYTES% (MANUAL) 3 % (0-0); NRBC % (MANUAL) 3 % (0-1)
[2019-05-15 13:55] LABS: ANISOCYTOSIS 1+
[2019-05-15 13:56] LABS: POLYCHROMASIA 1+
[2019-05-15 13:57] LABS: TOXIC GRAN 1+
[2019-05-15 13:58] LABS: <PLATELET ESTIMATE> DECREASED; <PLT MORPHOLOGY> NORMAL PLT MORPH
== END 2019-05-15 14:02 | disposition home or self-care (01) ==
LOC: ED 13:56
DX: N28.9 Disorder of kidney and ureter, unspecified (principal); B19.10 Unspecified viral hepatitis B without hepatic coma; F17.200 Nicotine dependence, unspecified, uncomplicated; I11.0 Hypertensive heart disease with heart failure; I50.9 Heart failure, unspecified; C34.90 Malignant neoplasm of unspecified part of unspecified bronchus or lung
CPT/HCPCS: 36415; 76700; 80053; 81003; 85025; 99284

== ENCOUNTER 2019-06-20 08:41 | Inpatient (IN) | payer OTHER ==
[~2019-06-20] VITALS: Ht 177.8 cm; Wt 58.8 kg
[~2019-06-20 08:41] MED LIST changes: +FOLI-17 PO; +FURO-93 PO; +POTA20TA91 PO; +SPIR25TA5 PO
[2019-06-20] MEDS ORDERED: FLUT1BLS3 IH (09:22)
[2019-06-20] MEDS ORDERED: ONDA8TAB9 PO (09:23)
[2019-06-20] MEDS ORDERED: LOPE2CAP PO (09:23)
--- NOTE | 2019-06-20 09:34 | NUR ---
REPORT FROM JORDAN RN, PT RESTING IN [facility] WITH CALL LIGHT WITHIN REACH. LAB AND XRAY AT BEDSIDE
[2019-06-20 09:56] LABS: ALANINE AMINOTRANSFERASE 89 U/L (12-78); ANION GAP 6 mmol/L (5-15); CHLORIDE 87 mmol/L (98-107); CREATININE 0.82 mg/dL (0.7-1.3)
[2019-06-20 09:59] LABS: MEAN CORPUSCULAR HEMOGLOBIN 36.7 pg (27.5-34.5); MEAN CORPUSCULAR HGB CONC 33.9 g/dL (33.2-36.2); MEAN CORPUSCULAR VOLUME 108.3 fL (81-97); MEAN PLATELET VOLUME 7.7 fL (7.4-10.4); PLATELET COUNT 149 x10^3/uL (130-400); RED CELL DISTRIBUTION WIDTH 18.8 % (9.4-14.8)
[2019-06-20 10:01] LABS: ALKALINE PHOSPHATASE 200 U/L (45-117); BILIRUBIN,TOTAL 1.8 mg/dL (0.2-1.0); TOTAL PROTEIN 6.1 g/dL (6.4-8.2); TROPONIN I < 0.015 ng/mL (0.000-0.045)
[2019-06-20 10:11] LABS: MD YES
[2019-06-20 10:13] LABS: LYMPH#(MANUAL) 0.41 x10^3/uL (1-3.4); LYMPHS% (MANUAL) 5 % (22-44); SEGS% (MANUAL) 95 % (42-75)
[2019-06-20 10:14] LABS: HYPERSEG PMNs 1+
[2019-06-20 10:16] LABS: <PLATELET ESTIMATE> ADEQUATE; <PLT MORPHOLOGY> NORMAL PLT MORPH; ANISOCYTOSIS 1+
[2019-06-20 10:28] LABS: INTERNATIONAL NORMALIZED RATIO 1.08 (0.93-1.1); PROTHROMBIN TIME 11.5 Seconds (9.6-11.5)
[2019-06-20] MEDS ORDERED: ONDANSETRON 2MG/ML, 2ML ONE (10:55)
[2019-06-20] MEDS ORDERED: MORPHINE SULFATE 4 MG/ML, 1ML ONE (10:55)
[2019-06-20] MEDS ORDERED: ONDANSETRON 2MG/ML, 2ML IVPush ONE (11:00)
[2019-06-20] MEDS ORDERED: MORPHINE SULFATE 4 MG/ML, 1ML IVPush PRN (11:00)
[2019-06-20] MEDS ORDERED: SODIUM CHLORIDE 0.9% 1,000ML IVBOLUS ONE (11:00)
--- NOTE | 2019-06-20 11:04 | NUR ---
PT PLACED ON 2L NC FOR SPO2 84-90%
--- NOTE | 2019-06-20 11:26 | NUR ---
PT TO CT
[2019-06-20 11:50] VITALS: BP 131/71
[2019-06-20] MEDS ORDERED: OMNIPAQUE 350 MG/ML, 75ML BOTTLE ONE (12:06)
[2019-06-20 12:09] VITALS: BP 137/68
[2019-06-20] MEDS ORDERED: SODIUM CHLORIDE 0.9% 1,000 ML IV ONE (13:01)
[2019-06-20] MEDS: NS + 40MEQ KCL 1,000 ML IV ONE ×2 (13:01→17:08)
[2019-06-20 13:09] VITALS: BP 125/73
--- NOTE | 2019-06-20 13:12 | NUR ---
LUNCH RN: TRANSFUSION COMPLETE, PT STS FEELING FINE, NO ADDITIONAL SOB OR PALPITATIONS. ADMIT ORDER RECEIVED, PT TO BE TRANSFERED TO FLOOR SOON. ALL NEEDS MET AT THIS TIME. WILL CONTINUE TO MONITOR. CALL LIGHT WITHIN REACH
--- NOTE | 2019-06-20 13:57 | NUR ---
REPORT TO MARLIN ANDREA
[2019-06-20] MEDS ORDERED: ACETAMINOPHEN 325 MG TABLET PO PRN (14:00)
[2019-06-20] MEDS ORDERED: ENOXAPARIN 40 MG/0.4 ML SQ SCH (14:00)
[2019-06-20 14:01] LABS: % IRON SATURATION 96 % (20-55); IRON LEVEL 237 mcg/dL (65-175); TOTAL IRON BINDING CAPACITY 246 mcg/dL (250-450)
[2019-06-20] MEDS ORDERED: THIAMINE 200 MG in SODIUM CHLORIDE 0.9% 50 ML IV ONE (14:30)
[2019-06-20 15:00] VITALS: BP 124/61
--- NOTE | 2019-06-20 15:39 | NUR ---
late entry - this tech transported pt to 339
[2019-06-20] MEDS ORDERED: MAGNESIUM SULFATE PMX 2GM/50ML 50 ML IV ONE (17:00)
[2019-06-20] MEDS: NYSTATIN 500,000 UNITS/5 ML UDC PO SCH ×2 (17:08→23:05)
[2019-06-20] MEDS: PANTOPRAZOLE 40 MG IV IVPush SCH (17:08)
[2019-06-20 19:31] VITALS: BP 114/65
[2019-06-20] MEDS: ATORVASTATIN 40 MG TABLET PO SCH (19:39)
[2019-06-20] MEDS: CARVEDILOL 6.25 MG TABLET PO SCH (19:39)
[2019-06-20] MEDS: CALCIUM CARBONATE 500 MG TAB.CHEW PO PRN (20:09)
[2019-06-20] MEDS: NICOTINE 14MG/24 HR PATCH.TD24 TD SCH (23:05)
[2019-06-21] VITALS (10 sets, daily range): BP systolic 107–146; BP diastolic 65–84
[2019-06-21] MEDS: CALCIUM CARBONATE 500 MG TAB.CHEW PO PRN ×3 (00:29→20:09)
[2019-06-21] MEDS: NYSTATIN 500,000 UNITS/5 ML UDC PO SCH ×4 (05:42→20:10)
[2019-06-21] MEDS ORDERED: MAGNESIUM SULFATE PMX 2GM/50ML 50 ML IV ONE (06:00)
[2019-06-21 06:17] LABS: ALANINE AMINOTRANSFERASE 64 U/L (12-78); ALBUMIN 2.4 g/dL (3.4-5.0); ANION GAP 7 mmol/L (5-15); CALCIUM 7.7 mg/dL (8.5-10.1); CHLORIDE 97 mmol/L (98-107)
[2019-06-21 06:19] LABS: ALKALINE PHOSPHATASE 149 U/L (45-117); BILIRUBIN,TOTAL 1.7 mg/dL (0.2-1.0); CREATININE 0.51 mg/dL (0.7-1.3); TOTAL PROTEIN 5.2 g/dL (6.4-8.2)
[2019-06-21] MEDS: SODIUM CHLORIDE 0.9% 1,000 ML IV SCH (08:13)
[2019-06-21] MEDS: PANTOPRAZOLE 40 MG IV IVPush SCH (08:13)
[2019-06-21] MEDS: CHOLECALCIFEROL 5,000u TAB PO SCH (08:14)
[2019-06-21] MEDS: CARVEDILOL 6.25 MG TABLET PO SCH ×2 (08:14→19:58)
[2019-06-21] MEDS: LISINOPRIL 10 MG TABLET PO SCH (08:14)
[2019-06-21] MEDS: THIAMINE 100MG TABLET PO SCH (08:14)
[2019-06-21] MEDS: MULTIVITAMIN 1 TABLET PO SCH (08:14)
[2019-06-21] MEDS: LACTOBACILLUS CHEW TABLET PO SCH ×3 (08:14→20:09)
[2019-06-21] MEDS: FOLIC ACID 1 MG TABLET PO SCH (08:14)
[2019-06-21] MEDS: Fluticasone/Umeclidin/Vilanter (Trelegy Ellipta 100-62.5-25 HOMEINH SCH (08:15)
[2019-06-21] MEDS: ACETAMINOPHEN 325 MG TABLET PO PRN ×2 (08:15→19:58)
[2019-06-21] MEDS ORDERED: FOLIC ACID 1 MG TABLET PO SCH (09:00)
[2019-06-21] MEDS ORDERED: POTASSIUM CHLORIDE 20 MEQ TAB.ER.PRT PO SCH (09:00)
[2019-06-21] MEDS ORDERED: POTASSIUM CHLORIDE 20 MEQ PO SCH (09:00)
[2019-06-21] MEDS ORDERED: FUROSEMIDE 20 MG TABLET PO SCH (09:00)
[2019-06-21 09:10] LABS: MEAN CORPUSCULAR HEMOGLOBIN 35.4 pg (27.5-34.5); MEAN CORPUSCULAR HGB CONC 33.9 g/dL (33.2-36.2); MEAN CORPUSCULAR VOLUME 104.3 fL (81-97); MEAN PLATELET VOLUME 7.9 fL (7.4-10.4); PLATELET COUNT 71 x10^3/uL (130-400); RED BLOOD COUNT 1.84 x10^6/uL (4.38-5.82); RED CELL DISTRIBUTION WIDTH 21.9 % (9.4-14.8)
[2019-06-21 09:13] LABS: MD YES
[2019-06-21 09:21] LABS: <PLATELET ESTIMATE> DECREASED; <PLT MORPHOLOGY> NORMAL PLT MORPH; ANISOCYTOSIS 1+; BAND#(MANUAL) 0.04 x10^3/uL; BANDS%(MANUAL) 6 % (0-7); BASOS#(MANUAL) 0.01 x10^3/uL (0-0.1); BASOS% (MANUAL) 1 % (0-1); HYPERSEG PMNs 1+; LYMPH#(MANUAL) 0.25 x10^3/uL (1-3.4); LYMPHS% (MANUAL) 35 % (22-44); MONOS#(MANUAL) 0.03 x10^3/uL (0.3-2.7); MONOS% (MANUAL) 4 % (2-9); SEG#(MANUAL) 0.38 x10^3/uL (1.8-6.8); SEGS% (MANUAL) 54 % (42-75); TOXIC GRAN 1+
[2019-06-21] MEDS ORDERED: ACETAMINOPHEN 325 MG TABLET PO ONE (10:00)
[2019-06-21] MEDS ORDERED: DIPHENHYDRAMINE 25 MG CAPSULE PO ONE (10:00)
[2019-06-21] MEDS ORDERED: TBO-FILGRASTIM 480 MCG/0.8 ML SQ ONE (11:30)
[2019-06-21] MEDS: ATORVASTATIN 40 MG TABLET PO SCH (19:58)
[2019-06-21] MEDS: NICOTINE 14MG/24 HR PATCH.TD24 TD SCH (23:15)
[2019-06-22 01:17] VITALS: BP 135/73
[2019-06-22] MEDS: ACETAMINOPHEN 325 MG TABLET PO PRN ×3 (03:12→19:47)
[2019-06-22] MEDS: NYSTATIN 500,000 UNITS/5 ML UDC PO SCH ×4 (05:28→19:47)
[2019-06-22 05:57] LABS: CHLORIDE 98 mmol/L (98-107)
[2019-06-22 06:02] LABS: ANION GAP 9 mmol/L (5-15); CALCIUM 7.8 mg/dL (8.5-10.1); CREATININE 0.43 mg/dL (0.7-1.3)
[2019-06-22] MEDS: CALCIUM CARBONATE 500 MG TAB.CHEW PO PRN ×3 (06:18→22:32)
[2019-06-22] MEDS ORDERED: MAGNESIUM SULFATE PMX 4GM/100M 100 ML IV ONE (07:30)
[2019-06-22] MEDS: PANTOPRAZOLE 40 MG IV IVPush SCH (07:54)
[2019-06-22] MEDS: CHOLECALCIFEROL 5,000u TAB PO SCH (07:55)
[2019-06-22] MEDS: LISINOPRIL 10 MG TABLET PO SCH (07:55)
[2019-06-22] MEDS: FOLIC ACID 1 MG TABLET PO SCH (07:55)
[2019-06-22] MEDS: CARVEDILOL 6.25 MG TABLET PO SCH ×2 (07:56→19:47)
[2019-06-22] MEDS: THIAMINE 100MG TABLET PO SCH (07:56)
[2019-06-22] MEDS: LACTOBACILLUS CHEW TABLET PO SCH ×3 (07:56→19:47)
[2019-06-22] MEDS: POTASSIUM CHLORIDE 20 MEQ TAB.ER.PRT PO SCH ×2 (07:56→19:47)
[2019-06-22] MEDS: MULTIVITAMIN 1 TABLET PO SCH (07:56)
[2019-06-22 08:35] VITALS: BP 140/82
[2019-06-22 08:58] LABS: MEAN CORPUSCULAR HEMOGLOBIN 34.5 pg (27.5-34.5); MEAN CORPUSCULAR HGB CONC 34.5 g/dL (33.2-36.2); RED BLOOD COUNT 2.56 x10^6/uL (4.38-5.82); RED CELL DISTRIBUTION WIDTH 19.4 % (9.4-14.8)
[2019-06-22] MEDS: Fluticasone/Umeclidin/Vilanter (Trelegy Ellipta 100-62.5-25 HOMEINH SCH (09:00)
[2019-06-22 09:03] LABS: MEAN PLATELET VOLUME 8.1 fL (7.4-10.4); PLATELET COUNT 75 x10^3/uL (130-400)
[2019-06-22 09:17] LABS: MD YES
[2019-06-22 09:30] LABS: BAND#(MANUAL) 0.01 x10^3/uL; BANDS%(MANUAL) 2 % (0-7); EOS#(MANUAL) 0.01 x10^3/uL (0.0-0.4); EOS% (MANUAL) 1 % (1-7); LYMPH#(MANUAL) 0.31 x10^3/uL (1-3.4); LYMPHS% (MANUAL) 61 % (22-44); MONOS#(MANUAL) 0.05 x10^3/uL (0.3-2.7); MONOS% (MANUAL) 10 % (2-9); SEG#(MANUAL) 0.13 x10^3/uL (1.8-6.8); SEGS% (MANUAL) 26 % (42-75)
[2019-06-22 09:31] LABS: <PLATELET ESTIMATE> DECREASED; <PLT MORPHOLOGY> NORMAL PLT MORPH; ANISOCYTOSIS 1+
[2019-06-22 09:32] LABS: HYPERSEG PMNs 1+; TOXIC GRAN 1+
[2019-06-22] MEDS: maalox/diphenh/lido/sucralfate 5 ML PO PRN ×2 (10:13→16:35)
[2019-06-22] MEDS: SODIUM CHLORIDE 0.9% 1,000 ML IV SCH (12:21)
[2019-06-22 13:37] VITALS: BP 127/84
[2019-06-22 19:33] VITALS: BP 153/83
[2019-06-22] MEDS: ATORVASTATIN 40 MG TABLET PO SCH (19:47)
[2019-06-22] MEDS: NICOTINE 14MG/24 HR PATCH.TD24 TD SCH (19:48)
[2019-06-23] MEDS: MORPHINE SULFATE 4 MG/ML, 1ML IVPush PRN ×4 (00:03→14:11)
[2019-06-23 00:08] VITALS: BP 127/75
[2019-06-23] MEDS: SODIUM CHLORIDE 0.9% 1,000 ML IV SCH ×2 (04:07→19:45)
[2019-06-23] MEDS: NYSTATIN 500,000 UNITS/5 ML UDC PO SCH ×4 (04:48→19:44)
[2019-06-23 05:08] LABS: CHLORIDE 97 mmol/L (98-107)
[2019-06-23 05:12] LABS: CALCIUM 8.1 mg/dL (8.5-10.1); CREATININE 0.45 mg/dL (0.7-1.3)
[2019-06-23 05:20] LABS: MEAN CORPUSCULAR HEMOGLOBIN 34.3 pg (27.5-34.5); MEAN CORPUSCULAR HGB CONC 34.1 g/dL (33.2-36.2); MEAN CORPUSCULAR VOLUME 100.5 fL (81-97); RED CELL DISTRIBUTION WIDTH 18.4 % (9.4-14.8)
[2019-06-23 05:48] LABS: MD YES
[2019-06-23 05:56] LABS: MEAN PLATELET VOLUME 8.1 fL (7.4-10.4)
[2019-06-23 05:58] LABS: PLATELET COUNT 31 x10^3/uL (130-400)
[2019-06-23] MEDS ORDERED: POTASSIUM CHLORIDE 20 MEQ in SODIUM CHLORIDE 0.9% 250 ML IV ONE ×2 (06:00)
[2019-06-23 06:12] LABS: BASOS#(MANUAL) 0.01 x10^3/uL (0-0.1); BASOS% (MANUAL) 1 % (0-1); EOS#(MANUAL) 0.01 x10^3/uL (0.0-0.4); EOS% (MANUAL) 1 % (1-7); LYMPH#(MANUAL) 0.29 x10^3/uL (1-3.4); LYMPHS% (MANUAL) 42 % (22-44); MONOS#(MANUAL) 0.14 x10^3/uL (0.3-2.7); MONOS% (MANUAL) 20 % (2-9); SEG#(MANUAL) 0.25 x10^3/uL (1.8-6.8); SEGS% (MANUAL) 36 % (42-75)
[2019-06-23 06:13] LABS: <PLATELET ESTIMATE> DECREASED; <PLT MORPHOLOGY> NORMAL PLT MORPH; ANISOCYTOSIS 1+; POLYCHROMASIA 1+
[2019-06-23 07:05] VITALS: BP 135/80
[2019-06-23] MEDS ORDERED: MAGNESIUM SULFATE PMX 4GM/100M 100 ML IV ONE (07:30)
[2019-06-23] MEDS: FOLIC ACID 1 MG TABLET PO SCH (08:59)
[2019-06-23] MEDS: PANTOPRAZOLE 40 MG IV IVPush SCH (08:59)
[2019-06-23] MEDS: MULTIVITAMIN 1 TABLET PO SCH (09:00)
[2019-06-23] MEDS: THIAMINE 100MG TABLET PO SCH (09:00)
[2019-06-23] MEDS: CHOLECALCIFEROL 5,000u TAB PO SCH (09:00)
[2019-06-23] MEDS: LACTOBACILLUS CHEW TABLET PO SCH ×3 (09:00→19:45)
[2019-06-23] MEDS: POTASSIUM CHLORIDE 20 MEQ TAB.ER.PRT PO SCH ×3 (09:00→19:44)
[2019-06-23] MEDS: LISINOPRIL 10 MG TABLET PO SCH (09:00)
[2019-06-23] MEDS: CARVEDILOL 6.25 MG TABLET PO SCH ×2 (09:01→19:45)
[2019-06-23] MEDS: maalox/diphenh/lido/sucralfate 5 ML PO PRN ×2 (11:28→18:45)
[2019-06-23 13:32] VITALS: BP 120/72
[2019-06-23 13:34] LABS: RED BLOOD COUNT 2.62 x10^6/uL (4.38-5.82)
[2019-06-23 13:44] LABS: BILIRUBIN, DIRECT 0.6 mg/dL (0.1-0.2)
[2019-06-23 13:46] LABS: BILIRUBIN,INDIRECT 0.7 mg/dL (0.0-2.0); BILIRUBIN,TOTAL 1.3 mg/dL (0.2-1.0)
[2019-06-23 14:15] LABS: D-DIMER (DIC) 0.35 ug/mlFEU (0.00-0.52); PROTIME 9.9 Seconds (9.6-11.5)
[2019-06-23 14:28] LABS: ABSOLUTE RETICS # 0.02 x10^6/uL (0.5-1.5); RETICULOCYTE COUNT % 0.77 % (0.5-1.5)
[2019-06-23] MEDS: ATORVASTATIN 40 MG TABLET PO SCH (19:44)
[2019-06-23 20:00] VITALS: BP 122/75
[2019-06-23] MEDS: NICOTINE 14MG/24 HR PATCH.TD24 TD SCH (22:52)
[2019-06-24 02:00] VITALS: BP 125/72
[2019-06-24] MEDS: MORPHINE SULFATE 4 MG/ML, 1ML IVPush PRN ×4 (05:03→19:54)
[2019-06-24] MEDS: NYSTATIN 500,000 UNITS/5 ML UDC PO SCH ×4 (05:47→19:53)
[2019-06-24 06:19] LABS: MEAN CORPUSCULAR HEMOGLOBIN 34.5 pg (27.5-34.5); MEAN CORPUSCULAR HGB CONC 34.4 g/dL (33.2-36.2); MEAN CORPUSCULAR VOLUME 100.3 fL (81-97); MEAN PLATELET VOLUME 8.4 fL (7.4-10.4); RED BLOOD COUNT 2.52 x10^6/uL (4.38-5.82); RED CELL DISTRIBUTION WIDTH 17.9 % (9.4-14.8)
[2019-06-24 06:21] LABS: PLATELET COUNT 21 x10^3/uL (130-400)
[2019-06-24 06:31] LABS: CHLORIDE 99 mmol/L (98-107)
[2019-06-24 06:32] LABS: CALCIUM 7.9 mg/dL (8.5-10.1); CREATININE 0.39 mg/dL (0.7-1.3)
[2019-06-24 06:36] LABS: MD YES
[2019-06-24 06:38] LABS: ANION GAP 8 mmol/L (5-15)
[2019-06-24 06:41] LABS: BAND#(MANUAL) 0.26 x10^3/uL; BANDS%(MANUAL) 22 % (0-7); EOS#(MANUAL) 0.01 x10^3/uL (0.0-0.4); EOS% (MANUAL) 1 % (1-7); LYMPHS% (MANUAL) 17 % (22-44); MONOS#(MANUAL) 0.29 x10^3/uL (0.3-2.7); MONOS% (MANUAL) 24 % (2-9); REACTIVE LYMPHS # (MANUAL) 0.02 x10^3/uL (0-0); REACTIVE LYMPHS % (MANUAL) 2 % (0-0); SEG#(MANUAL) 0.41 x10^3/uL (1.8-6.8); SEGS% (MANUAL) 34 % (42-75)
[2019-06-24 07:03] LABS: ANISOCYTOSIS 1+; POLYCHROMASIA 1+; TOXIC GRAN 1+
[2019-06-24 07:05] LABS: <PLATELET ESTIMATE> DECREASED; <PLT MORPHOLOGY> NORMAL PLT MORPH
[2019-06-24] MEDS: LISINOPRIL 10 MG TABLET PO SCH (09:44)
[2019-06-24] MEDS: MULTIVITAMIN 1 TABLET PO SCH (09:44)
[2019-06-24] MEDS: PANTOPRAZOLE 40 MG IV IVPush SCH (09:44)
[2019-06-24] MEDS: FOLIC ACID 1 MG TABLET PO SCH (09:46)
[2019-06-24] MEDS: THIAMINE 100MG TABLET PO SCH (09:46)
[2019-06-24 09:47] VITALS: BP 124/78
[2019-06-24] MEDS: LACTOBACILLUS CHEW TABLET PO SCH ×3 (09:47→19:53)
[2019-06-24] MEDS: CARVEDILOL 6.25 MG TABLET PO SCH ×2 (09:47→19:54)
[2019-06-24] MEDS: CHOLECALCIFEROL 5,000u TAB PO SCH (09:47)
[2019-06-24] MEDS: POTASSIUM CHLORIDE 20 MEQ TAB.ER.PRT PO SCH ×3 (11:58→19:55)
[2019-06-24] MEDS: maalox/diphenh/lido/sucralfate 5 ML PO PRN ×2 (12:11→19:52)
[2019-06-24 15:00] VITALS: BP 123/71
[2019-06-24] MEDS: SODIUM CHLORIDE 0.9% 1,000 ML IV SCH (15:12)
[2019-06-24 19:26] VITALS: BP 123/74
[2019-06-24] MEDS ORDERED: SODIUM CHLORIDE NASAL SPRAY 45ML BOTTLE NAS PRN (19:30)
[2019-06-24] MEDS ORDERED: POTASSIUM CHLORIDE 40 MEQ in SODIUM CHLORIDE 0.9% 500 ML IV ONE (19:30)
[2019-06-24] MEDS ORDERED: POTASSIUM CHLORIDE 40 MEQ in SODIUM CHLORIDE 0.9% 100 ML IV ONE (19:30)
[2019-06-24] MEDS: ONDANSETRON 2MG/ML, 2ML IVPush PRN (19:54)
[2019-06-24] MEDS: ATORVASTATIN 40 MG TABLET PO SCH (19:54)
[2019-06-24] MEDS: NICOTINE 14MG/24 HR PATCH.TD24 TD SCH (19:55)
[2019-06-25] MEDS: MORPHINE SULFATE 4 MG/ML, 1ML IVPush PRN ×5 (00:04→20:30)
[2019-06-25 02:30] VITALS: BP 120/72
[2019-06-25] MEDS: POTASSIUM CHLORIDE 20 MEQ TAB.ER.PRT PO SCH ×4 (05:40→20:31)
[2019-06-25] MEDS: NYSTATIN 500,000 UNITS/5 ML UDC PO SCH ×5 (05:41→22:05)
[2019-06-25] MEDS: SODIUM CHLORIDE 0.9% 1,000 ML IV SCH ×3 (05:41→22:06)
[2019-06-25 06:24] LABS: ANION GAP 7 mmol/L (5-15); CALCIUM 7.8 mg/dL (8.5-10.1); CHLORIDE 107 mmol/L (98-107)
[2019-06-25 06:37] LABS: MEAN CORPUSCULAR HEMOGLOBIN 34.8 pg (27.5-34.5); MEAN CORPUSCULAR VOLUME 102.1 fL (81-97); RED CELL DISTRIBUTION WIDTH 18.3 % (9.4-14.8)
[2019-06-25 06:51] LABS: MD YES
[2019-06-25 06:56] LABS: MEAN PLATELET VOLUME 8.7 fL (7.4-10.4)
[2019-06-25 06:58] LABS: PLATELET COUNT 22 x10^3/uL (130-400)
[2019-06-25 07:05] LABS: BAND#(MANUAL) 0.92 x10^3/uL; BANDS%(MANUAL) 27 % (0-7); LYMPH#(MANUAL) 0.37 x10^3/uL (1-3.4); LYMPHS% (MANUAL) 11 % (22-44); METAMYELOCYTES% (MANUAL) 3 % (0-1); MONOS#(MANUAL) 0.51 x10^3/uL (0.3-2.7); MONOS% (MANUAL) 15 % (2-9); SEG#(MANUAL) 1.46 x10^3/uL (1.8-6.8); SEGS% (MANUAL) 43 % (42-75)
[2019-06-25 07:09] LABS: MYELOCYTES# (MANUAL) 0.03 x10^3/uL (0-0); MYELOCYTES% (MANUAL) 1 % (0-0)
[2019-06-25 07:13] LABS: ANISOCYTOSIS 1+; POLYCHROMASIA 1+
[2019-06-25 07:14] LABS: <PLATELET ESTIMATE> DECREASED; <PLT MORPHOLOGY> NORMAL PLT MORPH; TOXIC GRAN 1+
[2019-06-25 08:59] VITALS: BP 130/73
[2019-06-25] MEDS: LACTOBACILLUS CHEW TABLET PO SCH ×3 (09:19→20:30)
[2019-06-25] MEDS: LISINOPRIL 10 MG TABLET PO SCH (09:20)
[2019-06-25] MEDS: CHOLECALCIFEROL 5,000u TAB PO SCH (09:20)
[2019-06-25] MEDS: FOLIC ACID 1 MG TABLET PO SCH (09:20)
[2019-06-25] MEDS: MULTIVITAMIN 1 TABLET PO SCH (09:20)
[2019-06-25] MEDS: CARVEDILOL 6.25 MG TABLET PO SCH ×2 (09:20→20:31)
[2019-06-25] MEDS: THIAMINE 100MG TABLET PO SCH (09:20)
[2019-06-25] MEDS: ONDANSETRON 2MG/ML, 2ML IVPush PRN (09:32)
[2019-06-25] MEDS: maalox/diphenh/lido/sucralfate 5 ML PO PRN (10:08)
[2019-06-25 14:59] VITALS: BP 139/80
[2019-06-25 20:26] VITALS: BP 118/71
[2019-06-25] MEDS: ATORVASTATIN 40 MG TABLET PO SCH (20:31)
[2019-06-25] MEDS: NICOTINE 14MG/24 HR PATCH.TD24 TD SCH (22:06)
[2019-06-26] MEDS: MORPHINE SULFATE 4 MG/ML, 1ML IVPush PRN ×6 (00:10→23:13)
[2019-06-26 01:10] VITALS: BP 103/66
[2019-06-26 04:52] LABS: ALANINE AMINOTRANSFERASE 81 U/L (12-78); ALBUMIN 2.4 g/dL (3.4-5.0); ANION GAP 4 mmol/L (5-15); CALCIUM 7.9 mg/dL (8.5-10.1); CHLORIDE 109 mmol/L (98-107); CREATININE 0.43 mg/dL (0.7-1.3)
[2019-06-26 04:54] LABS: ALKALINE PHOSPHATASE 130 U/L (45-117); BILIRUBIN,TOTAL 0.7 mg/dL (0.2-1.0); TOTAL PROTEIN 5.3 g/dL (6.4-8.2)
[2019-06-26] MEDS: NYSTATIN 500,000 UNITS/5 ML UDC PO SCH ×4 (05:33→21:26)
[2019-06-26] MEDS: POTASSIUM CHLORIDE 20 MEQ TAB.ER.PRT PO SCH ×4 (05:33→21:26)
[2019-06-26 06:49] VITALS: BP 115/70
[2019-06-26 07:26] LABS: MEAN CORPUSCULAR HEMOGLOBIN 33.9 pg (27.5-34.5); MEAN CORPUSCULAR HGB CONC 33.1 g/dL (33.2-36.2); MEAN CORPUSCULAR VOLUME 102.3 fL (81-97); MEAN PLATELET VOLUME 9.6 fL (7.4-10.4); RED BLOOD COUNT 2.43 x10^6/uL (4.38-5.82); RED CELL DISTRIBUTION WIDTH 18.7 % (9.4-14.8)
[2019-06-26 07:27] LABS: MD YES; PLATELET COUNT 19 x10^3/uL (130-400)
[2019-06-26 07:31] LABS: ANISOCYTOSIS 1+; BAND#(MANUAL) 0.49 x10^3/uL; BANDS%(MANUAL) 6 % (0-7); LYMPH#(MANUAL) 0.57 x10^3/uL (1-3.4); LYMPHS% (MANUAL) 7 % (22-44); METAMYELOCYTES# (MANUAL) 0.41 x10^3/uL (0-0); METAMYELOCYTES% (MANUAL) 5 % (0-1); MONOS#(MANUAL) 0.49 x10^3/uL (0.3-2.7); MONOS% (MANUAL) 6 % (2-9); MYELOCYTES# (MANUAL) 0.66 x10^3/uL (0-0); MYELOCYTES% (MANUAL) 8 % (0-0); SEG#(MANUAL) 5.58 x10^3/uL (1.8-6.8); SEGS% (MANUAL) 68 % (42-75)
[2019-06-26 07:32] LABS: POLYCHROMASIA 1+; TOXIC GRAN 1+
[2019-06-26 07:33] LABS: <PLATELET ESTIMATE> DECREASED; <PLT MORPHOLOGY> NORMAL PLT MORPH
[2019-06-26] MEDS: maalox/diphenh/lido/sucralfate 5 ML PO PRN ×2 (09:26→21:28)
[2019-06-26] MEDS: THIAMINE 100MG TABLET PO SCH (09:27)
[2019-06-26] MEDS: LISINOPRIL 10 MG TABLET PO SCH (09:27)
[2019-06-26] MEDS: FOLIC ACID 1 MG TABLET PO SCH (09:27)
[2019-06-26] MEDS: LACTOBACILLUS CHEW TABLET PO SCH ×3 (09:27→21:26)
[2019-06-26] MEDS: CARVEDILOL 6.25 MG TABLET PO SCH ×2 (09:27→21:26)
[2019-06-26] MEDS: MULTIVITAMIN 1 TABLET PO SCH (09:27)
[2019-06-26] MEDS: CHOLECALCIFEROL 5,000u TAB PO SCH (09:27)
[2019-06-26] MEDS: ONDANSETRON 2MG/ML, 2ML IVPush PRN (09:30)
[2019-06-26 12:18] VITALS: BP 122/77
[2019-06-26 19:10] VITALS: BP 116/75
[2019-06-26] MEDS: ATORVASTATIN 40 MG TABLET PO SCH (21:26)
[2019-06-26] MEDS: NICOTINE 14MG/24 HR PATCH.TD24 TD SCH (21:27)
[2019-06-27] MEDS: MORPHINE SULFATE 4 MG/ML, 1ML IVPush PRN ×5 (02:53→20:37)
[2019-06-27] MEDS: maalox/diphenh/lido/sucralfate 5 ML PO PRN (03:19)
[2019-06-27] MEDS: SODIUM CHLORIDE 0.9% 1,000 ML IV SCH ×2 (03:24→22:27)
[2019-06-27 03:31] LABS: MEAN CORPUSCULAR HEMOGLOBIN 34.4 pg (27.5-34.5); MEAN CORPUSCULAR HGB CONC 34.1 g/dL (33.2-36.2); MEAN CORPUSCULAR VOLUME 100.7 fL (81-97); RED BLOOD COUNT 2.39 x10^6/uL (4.38-5.82); RED CELL DISTRIBUTION WIDTH 17.7 % (9.4-14.8)
[2019-06-27 03:33] LABS: ALANINE AMINOTRANSFERASE 79 U/L (12-78); ALBUMIN 2.4 g/dL (3.4-5.0); ANION GAP 5 mmol/L (5-15); CALCIUM 8.3 mg/dL (8.5-10.1); CHLORIDE 110 mmol/L (98-107); CREATININE 0.57 mg/dL (0.7-1.3)
[2019-06-27 03:35] LABS: ALKALINE PHOSPHATASE 131 U/L (45-117); BILIRUBIN,TOTAL 0.4 mg/dL (0.2-1.0); TOTAL PROTEIN 5.3 g/dL (6.4-8.2)
[2019-06-27 03:36] VITALS: BP 112/68
[2019-06-27 04:06] LABS: MD YES; MEAN PLATELET VOLUME 9.3 fL (7.4-10.4)
[2019-06-27 04:07] LABS: PLATELET COUNT 18 x10^3/uL (130-400)
[2019-06-27 04:11] LABS: BAND#(MANUAL) 1.38 x10^3/uL; BANDS%(MANUAL) 11 % (0-7); EOS#(MANUAL) 0.13 x10^3/uL (0.0-0.4); EOS% (MANUAL) 1 % (1-7); LYMPH#(MANUAL) 1.75 x10^3/uL (1-3.4); LYMPHS% (MANUAL) 14 % (22-44); METAMYELOCYTES# (MANUAL) 0.13 x10^3/uL (0-0); METAMYELOCYTES% (MANUAL) 1 % (0-1); MONOS#(MANUAL) 0.38 x10^3/uL (0.3-2.7); MONOS% (MANUAL) 3 % (2-9); MYELOCYTES# (MANUAL) 0.38 x10^3/uL (0-0); MYELOCYTES% (MANUAL) 3 % (0-0); SEG#(MANUAL) 8.38 x10^3/uL (1.8-6.8); SEGS% (MANUAL) 67 % (42-75); TOXIC GRAN 1+
[2019-06-27 04:13] LABS: <PLATELET ESTIMATE> DECREASED; <PLT MORPHOLOGY> NORMAL PLT MORPH; ANISOCYTOSIS 1+
[2019-06-27 04:14] LABS: OVALOCYTES 1+; POLYCHROMASIA 1+
[2019-06-27] MEDS: POTASSIUM CHLORIDE 20 MEQ TAB.ER.PRT PO SCH ×2 (05:36→07:43)
[2019-06-27] MEDS: NYSTATIN 500,000 UNITS/5 ML UDC PO SCH ×4 (05:59→20:37)
[2019-06-27 07:19] VITALS: BP 125/62
[2019-06-27] MEDS: CHOLECALCIFEROL 5,000u TAB PO SCH (07:55)
[2019-06-27] MEDS: LISINOPRIL 10 MG TABLET PO SCH (07:55)
[2019-06-27] MEDS: LACTOBACILLUS CHEW TABLET PO SCH ×3 (07:55→20:37)
[2019-06-27] MEDS: MULTIVITAMIN 1 TABLET PO SCH (07:55)
[2019-06-27] MEDS: CARVEDILOL 6.25 MG TABLET PO SCH ×2 (07:55→20:37)
[2019-06-27] MEDS: THIAMINE 100MG TABLET PO SCH (07:55)
[2019-06-27] MEDS: FOLIC ACID 1 MG TABLET PO SCH (07:55)
[2019-06-27 13:35] VITALS: BP 131/68
[2019-06-27 20:18] VITALS: BP 110/66
[2019-06-27] MEDS: ATORVASTATIN 40 MG TABLET PO SCH (20:38)
[2019-06-27] MEDS: NICOTINE 14MG/24 HR PATCH.TD24 TD SCH (22:31)
[2019-06-28] MEDS: MORPHINE SULFATE 4 MG/ML, 1ML IVPush PRN ×2 (01:15→06:09)
[2019-06-28 01:26] VITALS: BP 117/71
[2019-06-28 04:09] LABS: ALBUMIN 2.3 g/dL (3.4-5.0); ANION GAP 5 mmol/L (5-15); CALCIUM 7.8 mg/dL (8.5-10.1); CHLORIDE 101 mmol/L (98-107)
[2019-06-28 04:12] LABS: MEAN CORPUSCULAR HGB CONC 33.3 g/dL (33.2-36.2); MEAN CORPUSCULAR VOLUME 102.1 fL (81-97); MEAN PLATELET VOLUME 8.6 fL (7.4-10.4); RED CELL DISTRIBUTION WIDTH 18.5 % (9.4-14.8)
[2019-06-28 04:13] LABS: ALANINE AMINOTRANSFERASE 75 U/L (12-78); ALKALINE PHOSPHATASE 128 U/L (45-117); BILIRUBIN,TOTAL 0.6 mg/dL (0.2-1.0); CREATININE 0.44 mg/dL (0.7-1.3); TOTAL PROTEIN 4.9 g/dL (6.4-8.2)
[2019-06-28 04:14] LABS: PLATELET COUNT 29 x10^3/uL (130-400)
[2019-06-28 04:26] LABS: MD YES
[2019-06-28 04:31] LABS: <PLATELET ESTIMATE> DECREASED; BAND#(MANUAL) 0.13 x10^3/uL; BANDS%(MANUAL) 1 % (0-7); LYMPH#(MANUAL) 1.57 x10^3/uL (1-3.4); LYMPHS% (MANUAL) 12 % (22-44); METAMYELOCYTES# (MANUAL) 0.26 x10^3/uL (0-0); METAMYELOCYTES% (MANUAL) 2 % (0-1); MONOS#(MANUAL) 0.52 x10^3/uL (0.3-2.7); MONOS% (MANUAL) 4 % (2-9); MYELOCYTES# (MANUAL) 0.92 x10^3/uL (0-0); MYELOCYTES% (MANUAL) 7 % (0-0); SEG#(MANUAL) 9.69 x10^3/uL (1.8-6.8); SEGS% (MANUAL) 74 % (42-75)
[2019-06-28 04:32] LABS: TOXIC GRAN 1+
[2019-06-28 04:33] LABS: ANISOCYTOSIS 1+; OVALOCYTES 1+
[2019-06-28] MEDS: NYSTATIN 500,000 UNITS/5 ML UDC PO SCH ×4 (06:03→20:34)
[2019-06-28 07:52] VITALS: BP 128/75
[2019-06-28] MEDS: MULTIVITAMIN 1 TABLET PO SCH (09:40)
[2019-06-28] MEDS: LACTOBACILLUS CHEW TABLET PO SCH ×3 (09:40→20:34)
[2019-06-28] MEDS: CHOLECALCIFEROL 5,000u TAB PO SCH (09:40)
[2019-06-28] MEDS: THIAMINE 100MG TABLET PO SCH (09:40)
[2019-06-28] MEDS: FOLIC ACID 1 MG TABLET PO SCH (09:41)
[2019-06-28] MEDS: POTASSIUM CHLORIDE 20 MEQ TAB.ER.PRT PO SCH ×2 (09:41→16:33)
[2019-06-28] MEDS: CARVEDILOL 6.25 MG TABLET PO SCH ×2 (09:41→21:00)
[2019-06-28] MEDS: LISINOPRIL 10 MG TABLET PO SCH (09:41)
[2019-06-28 13:03] VITALS: BP 125/62
[2019-06-28] MEDS: ACETAMINOPHEN 325 MG TABLET PO PRN (16:33)
[2019-06-28] MEDS: ONDANSETRON 2MG/ML, 2ML IVPush PRN (16:38)
[2019-06-28 18:51] VITALS: BP 102/59
[2019-06-28] MEDS: ATORVASTATIN 40 MG TABLET PO SCH (20:34)
[2019-06-28] MEDS: CALCIUM CARBONATE 500 MG TAB.CHEW PO PRN (20:34)
[2019-06-28] MEDS: NICOTINE 14MG/24 HR PATCH.TD24 TD SCH (23:13)
[2019-06-29 00:55] VITALS: BP 106/66
[2019-06-29 04:06] LABS: ALANINE AMINOTRANSFERASE 74 U/L (12-78); ALBUMIN 2.3 g/dL (3.4-5.0); ANION GAP 8 mmol/L (5-15); CALCIUM 7.8 mg/dL (8.5-10.1); CHLORIDE 101 mmol/L (98-107)
[2019-06-29 04:09] LABS: ALKALINE PHOSPHATASE 134 U/L (45-117); BILIRUBIN,TOTAL 0.7 mg/dL (0.2-1.0); CREATININE 0.45 mg/dL (0.7-1.3); TOTAL PROTEIN 5.2 g/dL (6.4-8.2)
[2019-06-29] MEDS: maalox/diphenh/lido/sucralfate 5 ML PO PRN (04:09)
[2019-06-29] MEDS: ACETAMINOPHEN 325 MG TABLET PO PRN ×4 (04:09→22:42)
[2019-06-29 04:24] LABS: MEAN CORPUSCULAR HEMOGLOBIN 34.4 pg (27.5-34.5); MEAN CORPUSCULAR HGB CONC 33.5 g/dL (33.2-36.2); MEAN CORPUSCULAR VOLUME 102.9 fL (81-97); MEAN PLATELET VOLUME 9.3 fL (7.4-10.4); RED BLOOD COUNT 2.46 x10^6/uL (4.38-5.82); RED CELL DISTRIBUTION WIDTH 18.4 % (9.4-14.8)
[2019-06-29 04:26] LABS: PLATELET COUNT 43 x10^3/uL (130-400)
[2019-06-29] MEDS: SODIUM CHLORIDE 0.9% 1,000 ML IV SCH ×2 (05:00→10:12)
[2019-06-29 05:45] LABS: MD YES
[2019-06-29 05:47] LABS: BAND#(MANUAL) 1.13 x10^3/uL; BANDS%(MANUAL) 9 % (0-7); EOS#(MANUAL) 0.13 x10^3/uL (0.0-0.4); EOS% (MANUAL) 1 % (1-7); LYMPH#(MANUAL) 0.88 x10^3/uL (1-3.4); LYMPHS% (MANUAL) 7 % (22-44); METAMYELOCYTES# (MANUAL) 0.63 x10^3/uL (0-0); METAMYELOCYTES% (MANUAL) 5 % (0-1); MONOS#(MANUAL) 1.13 x10^3/uL (0.3-2.7); MONOS% (MANUAL) 9 % (2-9); MYELOCYTES# (MANUAL) 0.76 x10^3/uL (0-0); MYELOCYTES% (MANUAL) 6 % (0-0); POLYCHROMASIA 1+; SEG#(MANUAL) 7.94 x10^3/uL (1.8-6.8); SEGS% (MANUAL) 63 % (42-75)
[2019-06-29 05:48] LABS: <PLATELET ESTIMATE> DECREASED; ANISOCYTOSIS 1+; HYPOGRAN PLTS 1+
[2019-06-29 05:49] LABS: OVALOCYTES 1+; TOXIC GRAN 1+
[2019-06-29] MEDS: NYSTATIN 500,000 UNITS/5 ML UDC PO SCH ×4 (05:59→20:37)
[2019-06-29 07:15] VITALS: BP 110/65
[2019-06-29] MEDS: FOLIC ACID 1 MG TABLET PO SCH (10:05)
[2019-06-29] MEDS: THIAMINE 100MG TABLET PO SCH (10:05)
[2019-06-29] MEDS: LACTOBACILLUS CHEW TABLET PO SCH ×3 (10:05→20:36)
[2019-06-29] MEDS: POTASSIUM CHLORIDE 20 MEQ TAB.ER.PRT PO SCH ×2 (10:05→16:38)
[2019-06-29] MEDS: LISINOPRIL 10 MG TABLET PO SCH (10:05)
[2019-06-29] MEDS: CHOLECALCIFEROL 5,000u TAB PO SCH (10:06)
[2019-06-29] MEDS: MULTIVITAMIN 1 TABLET PO SCH (10:06)
[2019-06-29] MEDS: CARVEDILOL 6.25 MG TABLET PO SCH ×2 (10:06→20:36)
[2019-06-29] MEDS: ONDANSETRON 2MG/ML, 2ML IVPush PRN ×3 (10:28→22:47)
[2019-06-29] MEDS: CALCIUM CARBONATE 500 MG TAB.CHEW PO PRN ×3 (13:30→20:41)
[2019-06-29 13:35] VITALS: BP 105/57
[2019-06-29] MEDS ORDERED: LOPERAMIDE 2 MG CAPSULE PO ONE (14:30)
[2019-06-29] MEDS ORDERED: LOPERAMIDE 2 MG CAPSULE PO PRN (14:30)
[2019-06-29 18:57] VITALS: BP 111/73
[2019-06-29] MEDS: ATORVASTATIN 40 MG TABLET PO SCH (20:36)
[2019-06-29] MEDS: NICOTINE 14MG/24 HR PATCH.TD24 TD SCH (23:46)
[2019-06-30 00:32] VITALS: BP 114/70
[2019-06-30] MEDS: SODIUM CHLORIDE 0.9% 1,000 ML IV SCH (04:18)
[2019-06-30] MEDS: NYSTATIN 500,000 UNITS/5 ML UDC PO SCH ×2 (04:18→11:16)
[2019-06-30 04:40] LABS: MEAN CORPUSCULAR HEMOGLOBIN 33.8 pg (27.5-34.5); MEAN CORPUSCULAR HGB CONC 33.2 g/dL (33.2-36.2); MEAN CORPUSCULAR VOLUME 101.8 fL (81-97); RED BLOOD COUNT 2.48 x10^6/uL (4.38-5.82); RED CELL DISTRIBUTION WIDTH 18.5 % (9.4-14.8)
[2019-06-30 04:50] LABS: ALANINE AMINOTRANSFERASE 68 U/L (12-78); ALBUMIN 2.4 g/dL (3.4-5.0); ANION GAP 6 mmol/L (5-15); CALCIUM 7.6 mg/dL (8.5-10.1); CHLORIDE 104 mmol/L (98-107); CREATININE 0.57 mg/dL (0.7-1.3)
[2019-06-30 04:53] LABS: ALKALINE PHOSPHATASE 128 U/L (45-117); BILIRUBIN,TOTAL 0.3 mg/dL (0.2-1.0); TOTAL PROTEIN 5.3 g/dL (6.4-8.2)
[2019-06-30 04:57] LABS: MD YES; MEAN PLATELET VOLUME 8.3 fL (7.4-10.4); PLATELET COUNT 77 x10^3/uL (130-400)
[2019-06-30 05:03] LABS: BANDS%(MANUAL) 10 % (0-7); EOS#(MANUAL) 0.14 x10^3/uL (0.0-0.4); EOS% (MANUAL) 1 % (1-7); LYMPHS% (MANUAL) 10 % (22-44); METAMYELOCYTES# (MANUAL) 0.14 x10^3/uL (0-0); METAMYELOCYTES% (MANUAL) 1 % (0-1); MONOS#(MANUAL) 0.42 x10^3/uL (0.3-2.7); MONOS% (MANUAL) 3 % (2-9); MYELOCYTES# (MANUAL) 0.56 x10^3/uL (0-0); MYELOCYTES% (MANUAL) 4 % (0-0); SEG#(MANUAL) 9.94 x10^3/uL (1.8-6.8); SEGS% (MANUAL) 71 % (42-75)
[2019-06-30 05:04] LABS: ANISOCYTOSIS 1+
[2019-06-30 05:05] LABS: <PLATELET ESTIMATE> DECREASED; <PLT MORPHOLOGY> NORMAL PLT MORPH; OVALOCYTES 1+
[2019-06-30 06:13] VITALS: BP 131/79
[2019-06-30] MEDS ORDERED: POTASSIUM CHLORIDE 20 MEQ TAB.ER.PRT PO SCH (08:00)
[2019-06-30] MEDS: CHOLECALCIFEROL 5,000u TAB PO SCH (08:02)
[2019-06-30] MEDS: LISINOPRIL 10 MG TABLET PO SCH (08:02)
[2019-06-30] MEDS: FOLIC ACID 1 MG TABLET PO SCH (08:02)
[2019-06-30] MEDS: THIAMINE 100MG TABLET PO SCH (08:02)
[2019-06-30] MEDS: MULTIVITAMIN 1 TABLET PO SCH (08:02)
[2019-06-30] MEDS: CARVEDILOL 6.25 MG TABLET PO SCH (08:02)
[2019-06-30] MEDS: LACTOBACILLUS CHEW TABLET PO SCH (08:02)
[2019-06-30] MEDS: POTASSIUM CHLORIDE 20 MEQ TAB.ER.PRT PO SCH (08:03)
[2019-06-30] MEDS: ONDANSETRON 2MG/ML, 2ML IVPush PRN (08:14)
[2019-06-30] MEDS: ACETAMINOPHEN 325 MG TABLET PO PRN (08:14)
[2019-06-30] MEDS ORDERED: THIA100T67 PO (09:11)
[2019-06-30] MEDS ORDERED: ACID1TAB7 PO (09:11)
[2019-06-30] MEDS ORDERED: NICO-485 TD (09:11)
[2019-06-30] MEDS ORDERED: LOPE2CAP PO (09:11)
[2019-06-30] MEDS ORDERED: NICO-486 TD (09:11)
[2019-06-30] MEDS ORDERED: CHOL500045 PO (09:11)
== END 2019-06-30 12:01 | disposition home or self-care (01) | DRG 808 ==
LOC: ED 09:01 → EDIP 13:01 → 3N 14:25 → 3WST 06-25 14:40
PROVIDERS: ADMIT Internal Medicine; ATTEND Internal Medicine
PROC: 30233N1 Transfusion of Nonautologous Red Blood Cells into Peripheral Vein, Percutaneous Approach (ICD-10-PCS; principal; 2019-06-20)
DX: D61.810 Antineoplastic chemotherapy induced pancytopenia (principal); E43 Unspecified severe protein-calorie malnutrition; C34.90 Malignant neoplasm of unspecified part of unspecified bronchus or lung; C79.31 Secondary malignant neoplasm of brain; Z68.1 Body mass index [BMI] 19.9 or less, adult; E87.1 Hypo-osmolality and hyponatremia; I42.8 Other cardiomyopathies; I50.22 Chronic systolic (congestive) heart failure; B37.0 Candidal stomatitis; D61.1 Drug-induced aplastic anemia; E83.42 Hypomagnesemia; E83.51 Hypocalcemia; F10.10 Alcohol abuse, uncomplicated; F17.210 Nicotine dependence, cigarettes, uncomplicated; I11.0 Hypertensive heart disease with heart failure; I25.2 Old myocardial infarction; J44.9 Chronic obstructive pulmonary disease, unspecified; K12.1 Other forms of stomatitis; K12.30 Oral mucositis (ulcerative), unspecified; R62.7 Adult failure to thrive; T45.1X5A Adverse effect of antineoplastic and immunosuppressive drugs, initial encounter; Z66 Do not resuscitate; Z78.9 Other specified health status; Z86.73 Personal history of transient ischemic attack (TIA), and cerebral infarction without residual deficits; Z92.3 Personal history of irradiation; E87.6 Hypokalemia; E87.5 Hyperkalemia; Y92.89 Other specified places as the place of occurrence of the external cause
CPT/HCPCS: 36415; 36430; 71045; 71275; 74181; 76700; 80048; 80053; 82247; 82248; 82330; 82607; 83540; 83550; 83615; 83735; 83880; 84075; 84450; 84460; 84484; 85025; 85045; 85049; 85379; 85384; 85610; 85730; 86850; 86880; 86900; 86923; 93005; 96374; 96375; G0378; J2405; J3411; J3480; Q9967; C9113; J1447; J2270; J3475; J7030; J7040; J7050; P9016; P9040; Q0163

== ENCOUNTER 2019-07-03 13:36 | Inpatient (IN) | payer OTHER ==
[~2019-07-03] VITALS: Ht 177.8 cm; Wt 61.2 kg
[~2019-07-03 13:36] MED LIST changes: +ACID1TAB7 PO; +CHOL500045 PO; +FLUT1BLS3 IH; +LOPE2CAP PO; +NICO-485 TD; +NICO-486 TD; +ONDA8TAB9 PO; +THIA100T67 PO
--- NOTE | 2019-07-03 14:07 | NUR ---
VITALS AND EKG DONE BY THIS TECH
[2019-07-03] MEDS ORDERED: SODIUM CHLORIDE FLUSH 10ML SYR IVF ONE (14:30)
[2019-07-03 14:43] LABS: ALANINE AMINOTRANSFERASE 59 U/L (12-78); ALBUMIN 2.8 g/dL (3.4-5.0); ANION GAP 9 mmol/L (5-15); CALCIUM 7.4 mg/dL (8.5-10.1); CHLORIDE 94 mmol/L (98-107); CREATININE 0.74 mg/dL (0.7-1.3)
[2019-07-03 14:44] LABS: MEAN CORPUSCULAR HEMOGLOBIN 33.7 pg (27.5-34.5); MEAN CORPUSCULAR HGB CONC 32.9 g/dL (33.2-36.2); MEAN CORPUSCULAR VOLUME 102.5 fL (81-97); RED BLOOD COUNT 2.78 x10^6/uL (4.38-5.82); RED CELL DISTRIBUTION WIDTH 19.3 % (9.4-14.8)
[2019-07-03 14:48] LABS: ALKALINE PHOSPHATASE 174 U/L (45-117); BILIRUBIN,TOTAL 0.6 mg/dL (0.2-1.0); TOTAL PROTEIN 6.3 g/dL (6.4-8.2); TROPONIN I < 0.015 ng/mL (0.000-0.045)
[2019-07-03] MEDS ORDERED: CEFTRIAXONE PMX 1GM/50ML 50 ML IVPB ONE (15:00)
[2019-07-03] MEDS ORDERED: AZITHROMYCIN 500 MG in SODIUM CHLORIDE 0.9% 250 ML IVPB ONE (15:00)
[2019-07-03] MEDS ORDERED: CEFTRIAXONE PMX 1GM/50ML 50 ML ONE (15:18)
[2019-07-03] MEDS ORDERED: SODIUM CHLORIDE FLUSH 10ML SYR IVF PRN (16:00)
[2019-07-03 16:27] LABS: MEAN PLATELET VOLUME 7.2 fL (7.4-10.4); PLATELET COUNT 383 x10^3/uL (130-400)
[2019-07-03] MEDS ORDERED: ACETAMINOPHEN 500 MG TABLET ONE (16:27)
[2019-07-03 16:28] LABS: MD YES
[2019-07-03] MEDS ORDERED: ONDANSETRON 2MG/ML, 2ML ONE (16:28)
[2019-07-03] MEDS ORDERED: ACETAMINOPHEN 325 MG TABLET ONE (16:29)
[2019-07-03 16:30] LABS: LYMPH#(MANUAL) 1.42 x10^3/uL (1-3.4); LYMPHS% (MANUAL) 8 % (22-44); METAMYELOCYTES# (MANUAL) 0.35 x10^3/uL (0-0); METAMYELOCYTES% (MANUAL) 2 % (0-1); MONOS#(MANUAL) 2.12 x10^3/uL (0.3-2.7); MONOS% (MANUAL) 12 % (2-9); MYELOCYTES# (MANUAL) 0.35 x10^3/uL (0-0); MYELOCYTES% (MANUAL) 2 % (0-0); SEG#(MANUAL) 13.45 x10^3/uL (1.8-6.8); SEGS% (MANUAL) 76 % (42-75)
[2019-07-03 16:32] LABS: ANISOCYTOSIS 1+
[2019-07-03 16:33] LABS: OVALOCYTES 1+; POLYCHROMASIA 1+
[2019-07-03 16:34] LABS: <PLATELET ESTIMATE> ADEQUATE; <PLT MORPHOLOGY> NORMAL PLT MORPH
[2019-07-03] MEDS ORDERED: ACETAMINOPHEN 325 MG TABLET PO ONE (17:00)
[2019-07-03] MEDS ORDERED: ONDANSETRON 2MG/ML, 2ML IVPush ONE (17:00)
[2019-07-03] MEDS ORDERED: TRAZODONE 50MG TABLET PO PRN (17:30)
[2019-07-03] MEDS ORDERED: BACLOFEN 10 MG TABLET PO PRN (17:30)
[2019-07-03] MEDS ORDERED: GABAPENTIN 300 MG CAPSULE PO PRN (17:30)
[2019-07-03] MEDS ORDERED: ONDANSETRON ODT 4 MG PO PRN (17:30)
[2019-07-03] MEDS ORDERED: HYDROmorphone 2 MG/ML, 1ML IVPush PRN (17:30)
[2019-07-03] MEDS ORDERED: LOPERAMIDE 2 MG CAPSULE PO PRN (17:30)
[2019-07-03] MEDS ORDERED: ONDANSETRON 8 MG TABLET PO PRN (17:30)
[2019-07-03] MEDS ORDERED: hydrALAzine 20 MG/ML, 1ML IVPush PRN (17:30)
[2019-07-03] MEDS ORDERED: DOCUSATE 100 MG CAPSULE PO PRN (17:30)
[2019-07-03] MEDS ORDERED: LABETALOL 5MG/ML, 20ML IVPush PRN (17:30)
[2019-07-03] MEDS ORDERED: POLYETHYLENE GLYCOL 17 GM PACKET PO PRN (17:30)
[2019-07-03] MEDS ORDERED: KETOROLAC 30 MG/1 ML IV PRN (17:30)
[2019-07-03] MEDS ORDERED: METOCLOPRAMIDE 5 MG/ML, 2ML IVPush PRN (17:30)
[2019-07-03 19:37] VITALS: BP 92/58
[2019-07-03] MEDS: CARVEDILOL 6.25 MG TABLET PO SCH (20:48)
[2019-07-03] MEDS: NICOTINE 14MG/24 HR PATCH.TD24 TD SCH (20:49)
[2019-07-03] MEDS: ATORVASTATIN 40 MG TABLET PO SCH (20:49)
[2019-07-03] MEDS: LACTOBACILLUS CHEW TABLET PO SCH (20:49)
[2019-07-03] MEDS: NYSTATIN 500,000 UNITS/5 ML UDC PO SCH ×2 (20:49→20:58)
[2019-07-03] MEDS: ENOXAPARIN 40 MG/0.4 ML SQ SCH (20:49)
[2019-07-04 00:42] VITALS: BP 96/60
[2019-07-04] MEDS: CEFTRIAXONE PMX 1GM/50ML 50 ML IV SCH ×2 (04:03→15:54)
[2019-07-04] MEDS: NYSTATIN 500,000 UNITS/5 ML UDC PO SCH ×4 (04:03→22:18)
[2019-07-04 05:37] LABS: MEAN CORPUSCULAR HEMOGLOBIN 34.1 pg (27.5-34.5); MEAN CORPUSCULAR HGB CONC 33.6 g/dL (33.2-36.2); MEAN CORPUSCULAR VOLUME 101.6 fL (81-97); MEAN PLATELET VOLUME 7.3 fL (7.4-10.4); PLATELET COUNT 345 x10^3/uL (130-400); RED BLOOD COUNT 2.22 x10^6/uL (4.38-5.82); RED CELL DISTRIBUTION WIDTH 18.9 % (9.4-14.8)
[2019-07-04 05:45] LABS: ANION GAP 9 mmol/L (5-15); CALCIUM 6.6 mg/dL (8.5-10.1); CHLORIDE 95 mmol/L (98-107)
[2019-07-04 05:46] LABS: CREATININE 0.79 mg/dL (0.7-1.3)
[2019-07-04 06:01] LABS: MD YES
[2019-07-04 06:02] LABS: BAND#(MANUAL) 0.22 x10^3/uL; BANDS%(MANUAL) 2 % (0-7); METAMYELOCYTES# (MANUAL) 0.22 x10^3/uL (0-0); METAMYELOCYTES% (MANUAL) 2 % (0-1); MYELOCYTES# (MANUAL) 0.11 x10^3/uL (0-0); MYELOCYTES% (MANUAL) 1 % (0-0); SEG#(MANUAL) 8.14 x10^3/uL (1.8-6.8); SEGS% (MANUAL) 74 % (42-75)
[2019-07-04 06:03] LABS: ANISOCYTOSIS 1+; LYMPH#(MANUAL) 0.88 x10^3/uL (1-3.4); LYMPHS% (MANUAL) 8 % (22-44); MONOS#(MANUAL) 1.43 x10^3/uL (0.3-2.7); MONOS% (MANUAL) 13 % (2-9); TOXIC GRAN 1+
[2019-07-04 06:04] LABS: <PLATELET ESTIMATE> ADEQUATE; <PLT MORPHOLOGY> NORMAL PLT MORPH; OVALOCYTES 1+; POLYCHROMASIA 1+
[2019-07-04 07:11] VITALS: BP 92/59
[2019-07-04] MEDS: POTASSIUM CHLORIDE 20 MEQ TAB.ER.PRT PO SCH ×4 (07:56→22:18)
[2019-07-04] MEDS: LISINOPRIL 10 MG TABLET PO SCH (08:57)
[2019-07-04] MEDS ORDERED: TRELEGY ELLIPTA INH SCH (09:00)
[2019-07-04] MEDS ORDERED: NICOTINE 7 MG/24 HR PATCH.TD24 TD SCH (09:00)
[2019-07-04] MEDS: FLUTICASONE/VILANTEROL 100-25MCG/INH INH SCH (09:00)
[2019-07-04] MEDS: LACTOBACILLUS CHEW TABLET PO SCH ×3 (09:11→22:18)
[2019-07-04] MEDS: CHOLECALCIFEROL 5,000u TAB PO SCH (09:12)
[2019-07-04] MEDS: THIAMINE 100MG TABLET PO SCH (09:12)
[2019-07-04] MEDS: FOLIC ACID 1 MG TABLET PO SCH (09:12)
[2019-07-04] MEDS: CARVEDILOL 6.25 MG TABLET PO SCH ×2 (09:12→22:18)
[2019-07-04] MEDS: ONDANSETRON 2MG/ML, 2ML IVPush PRN (09:28)
[2019-07-04] MEDS: ACETAMINOPHEN 325 MG TABLET PO PRN ×2 (09:29→15:55)
[2019-07-04 12:34] VITALS: BP 92/55
[2019-07-04] MEDS: AZITHROMYCIN 500 MG in SODIUM CHLORIDE 0.9% 250 ML IV SCH (14:49)
[2019-07-04] MEDS: BUTALB/APAP/CAFFEINE 50MG/325MG/40MG PO PRN ×2 (18:24→22:20)
[2019-07-04] MEDS ORDERED: MAGNESIUM SULFATE 6 GM in SODIUM CHLORIDE 0.9% 250 ML IV ONE (19:00)
[2019-07-04 20:10] VITALS: BP 109/63
[2019-07-04] MEDS: NICOTINE 14MG/24 HR PATCH.TD24 TD SCH (22:18)
[2019-07-04] MEDS: ATORVASTATIN 40 MG TABLET PO SCH (22:19)
[2019-07-04] MEDS: ENOXAPARIN 40 MG/0.4 ML SQ SCH (22:19)
[2019-07-05 00:25] VITALS: BP 99/64
[2019-07-05] MEDS: BUTALB/APAP/CAFFEINE 50MG/325MG/40MG PO PRN ×3 (04:29→22:07)
[2019-07-05] MEDS: CEFTRIAXONE PMX 1GM/50ML 50 ML IV SCH ×2 (04:30→16:28)
[2019-07-05] MEDS: NYSTATIN 500,000 UNITS/5 ML UDC PO SCH ×4 (05:50→20:15)
[2019-07-05 06:54] VITALS: BP 105/66
[2019-07-05 07:01] LABS: CHLORIDE 100 mmol/L (98-107)
[2019-07-05 07:10] LABS: ALANINE AMINOTRANSFERASE 45 U/L (12-78); ALBUMIN 2.6 g/dL (3.4-5.0); ALKALINE PHOSPHATASE 181 U/L (45-117); ANION GAP 7 mmol/L (5-15); BILIRUBIN,TOTAL 0.6 mg/dL (0.2-1.0); CALCIUM 7.9 mg/dL (8.5-10.1); CREATININE 0.65 mg/dL (0.7-1.3); TOTAL PROTEIN 6.4 g/dL (6.4-8.2)
[2019-07-05 07:17] LABS: MD YES
[2019-07-05 07:18] LABS: MEAN CORPUSCULAR HEMOGLOBIN 34.3 pg (27.5-34.5); MEAN CORPUSCULAR HGB CONC 33.7 g/dL (33.2-36.2); MEAN CORPUSCULAR VOLUME 101.7 fL (81-97); MEAN PLATELET VOLUME 8.3 fL (7.4-10.4); PLATELET COUNT 463 x10^3/uL (130-400); RED BLOOD COUNT 2.63 x10^6/uL (4.38-5.82); RED CELL DISTRIBUTION WIDTH 19.1 % (9.4-14.8)
[2019-07-05 07:19] LABS: <PLATELET ESTIMATE> INCREASED; <PLT MORPHOLOGY> NORMAL PLT MORPH; ANISOCYTOSIS 1+; LYMPH#(MANUAL) 1.17 x10^3/uL (1-3.4); LYMPHS% (MANUAL) 9 % (22-44); MONOS#(MANUAL) 0.91 x10^3/uL (0.3-2.7); MONOS% (MANUAL) 7 % (2-9); MYELOCYTES# (MANUAL) 0.13 x10^3/uL (0-0); MYELOCYTES% (MANUAL) 1 % (0-0); OVALOCYTES 1+; POLYCHROMASIA 1+; SEG#(MANUAL) 10.79 x10^3/uL (1.8-6.8); SEGS% (MANUAL) 83 % (42-75)
[2019-07-05] MEDS: FLUTICASONE/VILANTEROL 100-25MCG/INH INH SCH (07:59)
[2019-07-05] MEDS: THIAMINE 100MG TABLET PO SCH (08:00)
[2019-07-05] MEDS: LISINOPRIL 10 MG TABLET PO SCH (08:00)
[2019-07-05] MEDS: POTASSIUM CHLORIDE 20 MEQ TAB.ER.PRT PO SCH (08:00)
[2019-07-05] MEDS: LACTOBACILLUS CHEW TABLET PO SCH ×3 (08:00→20:15)
[2019-07-05] MEDS: CHOLECALCIFEROL 5,000u TAB PO SCH (08:00)
[2019-07-05] MEDS: CARVEDILOL 6.25 MG TABLET PO SCH ×2 (08:00→20:15)
[2019-07-05] MEDS: FOLIC ACID 1 MG TABLET PO SCH (08:00)
[2019-07-05 12:09] VITALS: BP 112/74
[2019-07-05] MEDS: AZITHROMYCIN 500 MG in SODIUM CHLORIDE 0.9% 250 ML IV SCH (15:12)
[2019-07-05 18:57] VITALS: BP 106/67
[2019-07-05] MEDS: ENOXAPARIN 40 MG/0.4 ML SQ SCH (20:15)
[2019-07-05] MEDS: ATORVASTATIN 40 MG TABLET PO SCH (20:15)
[2019-07-05] MEDS: NICOTINE 14MG/24 HR PATCH.TD24 TD SCH (22:07)
[2019-07-06 01:09] VITALS: BP 106/71
[2019-07-06] MEDS: BUTALB/APAP/CAFFEINE 50MG/325MG/40MG PO PRN ×2 (02:22→17:11)
[2019-07-06] MEDS: CEFTRIAXONE PMX 1GM/50ML 50 ML IV SCH ×2 (04:10→16:15)
[2019-07-06 04:44] LABS: ANION GAP 6 mmol/L (5-15); CALCIUM 7.6 mg/dL (8.5-10.1); CHLORIDE 99 mmol/L (98-107); CREATININE 0.56 mg/dL (0.7-1.3)
[2019-07-06] MEDS: NYSTATIN 500,000 UNITS/5 ML UDC PO SCH ×4 (06:03→20:43)
[2019-07-06 07:08] VITALS: BP 113/72
[2019-07-06] MEDS: THIAMINE 100MG TABLET PO SCH (08:03)
[2019-07-06] MEDS: FOLIC ACID 1 MG TABLET PO SCH (08:03)
[2019-07-06] MEDS: POTASSIUM CHLORIDE 20 MEQ TAB.ER.PRT PO SCH (08:03)
[2019-07-06] MEDS: CHOLECALCIFEROL 5,000u TAB PO SCH (08:04)
[2019-07-06] MEDS: LISINOPRIL 10 MG TABLET PO SCH (08:04)
[2019-07-06] MEDS: CARVEDILOL 6.25 MG TABLET PO SCH ×2 (08:04→20:44)
[2019-07-06] MEDS: LACTOBACILLUS CHEW TABLET PO SCH ×3 (08:04→20:43)
[2019-07-06] MEDS: FLUTICASONE/VILANTEROL 100-25MCG/INH INH SCH (08:05)
[2019-07-06 08:51] LABS: MEAN CORPUSCULAR HEMOGLOBIN 33.8 pg (27.5-34.5); MEAN CORPUSCULAR HGB CONC 33.1 g/dL (33.2-36.2); MEAN CORPUSCULAR VOLUME 102.1 fL (81-97); MEAN PLATELET VOLUME 6.7 fL (7.4-10.4); PLATELET COUNT 504 x10^3/uL (130-400); RED BLOOD COUNT 2.47 x10^6/uL (4.38-5.82)
[2019-07-06 09:33] LABS: MD YES
[2019-07-06 09:36] LABS: BAND#(MANUAL) 0.11 x10^3/uL; BANDS%(MANUAL) 1 % (0-7); EOS#(MANUAL) 0.11 x10^3/uL (0.0-0.4); EOS% (MANUAL) 1 % (1-7); LYMPH#(MANUAL) 0.97 x10^3/uL (1-3.4); LYMPHS% (MANUAL) 9 % (22-44); MONOS#(MANUAL) 1.08 x10^3/uL (0.3-2.7); MONOS% (MANUAL) 10 % (2-9); SEG#(MANUAL) 8.53 x10^3/uL (1.8-6.8); SEGS% (MANUAL) 79 % (42-75)
[2019-07-06 09:37] LABS: ANISOCYTOSIS 1+
[2019-07-06 09:38] LABS: POLYCHROMASIA 1+
[2019-07-06 09:40] LABS: OVALOCYTES 1+
[2019-07-06 09:41] LABS: TOXIC GRAN 1+
[2019-07-06 09:43] LABS: ECHINOCYTES 1+
[2019-07-06 09:45] LABS: <PLATELET ESTIMATE> INCREASED; <PLT MORPHOLOGY> NORMAL PLT MORPH
[2019-07-06 13:00] VITALS: BP 98/61
[2019-07-06] MEDS: AZITHROMYCIN 500 MG in SODIUM CHLORIDE 0.9% 250 ML IV SCH (14:35)
[2019-07-06] MEDS ORDERED: CALCIUM CARBONATE 500 MG TAB.CHEW PO PRN (16:45)
[2019-07-06 19:45] VITALS: BP 107/73
[2019-07-06] MEDS: ATORVASTATIN 40 MG TABLET PO SCH (20:43)
[2019-07-06] MEDS: NICOTINE 14MG/24 HR PATCH.TD24 TD SCH (20:43)
[2019-07-06] MEDS: ENOXAPARIN 40 MG/0.4 ML SQ SCH (20:43)
[2019-07-07] VITALS (7 sets, daily range): BP systolic 94–104; BP diastolic 61–70
[2019-07-07] MEDS: CEFTRIAXONE PMX 1GM/50ML 50 ML IV SCH ×2 (03:52→17:52)
[2019-07-07 04:22] LABS: ALANINE AMINOTRANSFERASE 27 U/L (12-78); ANION GAP 8 mmol/L (5-15); CALCIUM 7.8 mg/dL (8.5-10.1); CHLORIDE 98 mmol/L (98-107)
[2019-07-07 04:24] LABS: ALKALINE PHOSPHATASE 152 U/L (45-117); BILIRUBIN,TOTAL 0.5 mg/dL (0.2-1.0); TOTAL PROTEIN 5.8 g/dL (6.4-8.2)
[2019-07-07 05:15] LABS: MEAN CORPUSCULAR HEMOGLOBIN 33.8 pg (27.5-34.5); MEAN CORPUSCULAR HGB CONC 33.3 g/dL (33.2-36.2); MEAN CORPUSCULAR VOLUME 101.6 fL (81-97); MEAN PLATELET VOLUME 7.2 fL (7.4-10.4); PLATELET COUNT 478 x10^3/uL (130-400); RED BLOOD COUNT 2.24 x10^6/uL (4.38-5.82); RED CELL DISTRIBUTION WIDTH 19.7 % (9.4-14.8)
[2019-07-07 05:50] LABS: MD YES
[2019-07-07 05:53] LABS: ANISOCYTOSIS 1+; BASOS#(MANUAL) 0.12 x10^3/uL (0-0.1); BASOS% (MANUAL) 1 % (0-1); LYMPH#(MANUAL) 0.94 x10^3/uL (1-3.4); LYMPHS% (MANUAL) 8 % (22-44); METAMYELOCYTES# (MANUAL) 0.12 x10^3/uL (0-0); METAMYELOCYTES% (MANUAL) 1 % (0-1); MONOS#(MANUAL) 0.83 x10^3/uL (0.3-2.7); MONOS% (MANUAL) 7 % (2-9); POLYCHROMASIA 1+; SEG#(MANUAL) 9.79 x10^3/uL (1.8-6.8); SEGS% (MANUAL) 83 % (42-75)
[2019-07-07 05:54] LABS: <PLATELET ESTIMATE> INCREASED; <PLT MORPHOLOGY> NORMAL PLT MORPH; TOXIC GRAN 1+
[2019-07-07] MEDS: NYSTATIN 500,000 UNITS/5 ML UDC PO SCH ×4 (06:00→20:54)
[2019-07-07] MEDS: FLUTICASONE/VILANTEROL 100-25MCG/INH INH SCH (09:00)
[2019-07-07] MEDS: CARVEDILOL 6.25 MG TABLET PO SCH ×2 (10:47→21:32)
[2019-07-07] MEDS: LACTOBACILLUS CHEW TABLET PO SCH ×3 (10:48→20:46)
[2019-07-07] MEDS: POTASSIUM CHLORIDE 20 MEQ TAB.ER.PRT PO SCH (10:48)
[2019-07-07] MEDS: CHOLECALCIFEROL 5,000u TAB PO SCH (10:49)
[2019-07-07] MEDS: THIAMINE 100MG TABLET PO SCH (10:49)
[2019-07-07] MEDS: FOLIC ACID 1 MG TABLET PO SCH (10:49)
[2019-07-07] MEDS: LISINOPRIL 10 MG TABLET PO SCH (10:55)
[2019-07-07] MEDS ORDERED: POTASSIUM CHLORIDE 20 MEQ TAB.ER.PRT PO ONE (11:00)
[2019-07-07] MEDS: AZITHROMYCIN 500 MG in SODIUM CHLORIDE 0.9% 250 ML IV SCH (15:49)
[2019-07-07] MEDS: BUTALB/APAP/CAFFEINE 50MG/325MG/40MG PO PRN ×2 (15:53→21:05)
[2019-07-07] MEDS: ENOXAPARIN 40 MG/0.4 ML SQ SCH (20:46)
[2019-07-07] MEDS: ATORVASTATIN 40 MG TABLET PO SCH (20:46)
[2019-07-07] MEDS: NICOTINE 14MG/24 HR PATCH.TD24 TD SCH (20:49)
[2019-07-08 00:10] VITALS: BP 97/65
[2019-07-08] MEDS: CEFTRIAXONE PMX 1GM/50ML 50 ML IV SCH ×2 (04:39→18:04)
[2019-07-08] MEDS: NYSTATIN 500,000 UNITS/5 ML UDC PO SCH ×4 (05:03→20:24)
[2019-07-08] MEDS: BUTALB/APAP/CAFFEINE 50MG/325MG/40MG PO PRN ×3 (05:20→19:04)
[2019-07-08 05:30] LABS: CALCIUM 7.8 mg/dL (8.5-10.1); CHLORIDE 102 mmol/L (98-107); MEAN CORPUSCULAR HEMOGLOBIN 34.4 pg (27.5-34.5); MEAN CORPUSCULAR VOLUME 101.1 fL (81-97); MEAN PLATELET VOLUME 6.9 fL (7.4-10.4); PLATELET COUNT 476 x10^3/uL (130-400); RED BLOOD COUNT 2.14 x10^6/uL (4.38-5.82); RED CELL DISTRIBUTION WIDTH 19.4 % (9.4-14.8)
[2019-07-08 05:34] LABS: ANION GAP 8 mmol/L (5-15); CREATININE 0.44 mg/dL (0.7-1.3)
[2019-07-08 06:25] LABS: BASOPHILS # (AUTO) 0.04 x10^3/uL (0-0.1); BASOPHILS % (AUTO) 1 % (0-1); EOSINOPHILS # (AUTO) 0.01 x10^3/uL (0-0.4); EOSINOPHILS % (AUTO) 0 % (1-7); LYMPHOCYTES % (AUTO) 13 % (22-44); MD SCAN; MONOCYTES # (AUTO) 1.26 x10^3/uL (0.2-0.8); MONOCYTES % (AUTO) 14 % (2-9); NEUTROPHILS # (AUTO) 6.66 x10^3/uL (1.8-6.8); NEUTROPHILS % (AUTO) 73 % (42-75)
[2019-07-08 07:10] VITALS: BP 112/68
[2019-07-08 07:11] VITALS: BP 123/83
[2019-07-08] MEDS: LACTOBACILLUS CHEW TABLET PO SCH ×3 (08:04→20:24)
[2019-07-08] MEDS: LISINOPRIL 10 MG TABLET PO SCH (08:05)
[2019-07-08] MEDS: CHOLECALCIFEROL 5,000u TAB PO SCH (08:05)
[2019-07-08] MEDS: THIAMINE 100MG TABLET PO SCH (08:05)
[2019-07-08] MEDS: CARVEDILOL 6.25 MG TABLET PO SCH ×2 (08:05→20:25)
[2019-07-08] MEDS: FOLIC ACID 1 MG TABLET PO SCH (08:05)
[2019-07-08] MEDS: POTASSIUM CHLORIDE 20 MEQ TAB.ER.PRT PO SCH (08:05)
[2019-07-08] MEDS: FLUTICASONE/VILANTEROL 100-25MCG/INH INH SCH (08:07)
[2019-07-08 14:09] VITALS: BP 99/65
[2019-07-08] MEDS: AZITHROMYCIN 500 MG in SODIUM CHLORIDE 0.9% 250 ML IV SCH (16:00)
[2019-07-08] MEDS: ENOXAPARIN 40 MG/0.4 ML SQ SCH (19:04)
[2019-07-08 20:00] VITALS: BP 120/62
[2019-07-08] MEDS: ATORVASTATIN 40 MG TABLET PO SCH (20:24)
[2019-07-08] MEDS: NICOTINE 14MG/24 HR PATCH.TD24 TD SCH (20:25)
[2019-07-09 02:17] VITALS: BP 119/63
[2019-07-09] MEDS: NYSTATIN 500,000 UNITS/5 ML UDC PO SCH ×2 (05:54→13:10)
[2019-07-09] MEDS: CEFTRIAXONE PMX 1GM/50ML 50 ML IV SCH (06:20)
[2019-07-09] MEDS: BUTALB/APAP/CAFFEINE 50MG/325MG/40MG PO PRN (06:25)
[2019-07-09] MEDS: ONDANSETRON 2MG/ML, 2ML IVPush PRN (06:25)
[2019-07-09 06:31] LABS: ANION GAP 8 mmol/L (5-15); CALCIUM 7.9 mg/dL (8.5-10.1); CHLORIDE 101 mmol/L (98-107); CREATININE 0.48 mg/dL (0.7-1.3)
[2019-07-09 06:42] LABS: MEAN CORPUSCULAR HEMOGLOBIN 33.7 pg (27.5-34.5); MEAN CORPUSCULAR HGB CONC 32.7 g/dL (33.2-36.2); MEAN CORPUSCULAR VOLUME 103.1 fL (81-97); MEAN PLATELET VOLUME 6.3 fL (7.4-10.4); PLATELET COUNT 524 x10^3/uL (130-400); RED BLOOD COUNT 2.21 x10^6/uL (4.38-5.82); RED CELL DISTRIBUTION WIDTH 19.4 % (9.4-14.8)
[2019-07-09 07:08] LABS: BASOPHILS # (AUTO) 0.66 x10^3/uL (0-0.1); BASOPHILS % (AUTO) 7 % (0-1); EOSINOPHILS % (AUTO) 0 % (1-7); LYMPHOCYTES # (AUTO) 0.98 x10^3/uL (1-3.4); LYMPHOCYTES % (AUTO) 10 % (22-44); MD SCAN; MONOCYTES # (AUTO) 1.02 x10^3/uL (0.2-0.8); MONOCYTES % (AUTO) 10 % (2-9); NEUTROPHILS # (AUTO) 7.33 x10^3/uL (1.8-6.8); NEUTROPHILS % (AUTO) 73 % (42-75)
[2019-07-09] MEDS: POTASSIUM CHLORIDE 20 MEQ TAB.ER.PRT PO SCH (08:09)
[2019-07-09] MEDS: LACTOBACILLUS CHEW TABLET PO SCH (08:09)
[2019-07-09] MEDS: CARVEDILOL 6.25 MG TABLET PO SCH (08:09)
[2019-07-09] MEDS: CHOLECALCIFEROL 5,000u TAB PO SCH (08:09)
[2019-07-09] MEDS: FOLIC ACID 1 MG TABLET PO SCH (08:09)
[2019-07-09] MEDS: THIAMINE 100MG TABLET PO SCH (08:09)
[2019-07-09 08:11] VITALS: BP 105/70
[2019-07-09] MEDS: LISINOPRIL 10 MG TABLET PO SCH (08:12)
[2019-07-09] MEDS: FLUTICASONE/VILANTEROL 100-25MCG/INH INH SCH (09:00)
[2019-07-09] MEDS ORDERED: CEFD300C37 PO (09:31)
[2019-07-09] MEDS ORDERED: AZIT500T10 PO (09:31)
== END 2019-07-09 13:51 | disposition home or self-care (01) | DRG 190 ==
LOC: ED 14:06 → EDIP 15:59 → 4NW 18:43 → 3WST 07-08 17:00
PROVIDERS: ADMIT Family Medicine; ATTEND Internal Medicine Infectious Disease
DX: J44.0 Chronic obstructive pulmonary disease with (acute) lower respiratory infection (principal); J18.9 Pneumonia, unspecified organism; C34.90 Malignant neoplasm of unspecified part of unspecified bronchus or lung; E87.1 Hypo-osmolality and hyponatremia; E87.2 Acidosis; I11.0 Hypertensive heart disease with heart failure; I50.9 Heart failure, unspecified; F12.90 Cannabis use, unspecified, uncomplicated; F17.210 Nicotine dependence, cigarettes, uncomplicated; E78.5 Hyperlipidemia, unspecified; E83.42 Hypomagnesemia; E87.6 Hypokalemia; E87.8 Other disorders of electrolyte and fluid balance, not elsewhere classified; E83.51 Hypocalcemia; D53.9 Nutritional anemia, unspecified; Z66 Do not resuscitate; Z85.841 Personal history of malignant neoplasm of brain; Z79.899 Other long term (current) drug therapy; Z03.818 Encounter for observation for suspected exposure to other biological agents ruled out
CPT/HCPCS: 36415; 96365; 96366; 96368; 96375; 99285; J3490; 71045; 80048; 80053; 82607; 83605; 83735; 83880; 83930; 83935; 84100; 84484; 85025; 87040; 93005; G0378; J0456; J0696; J1650; J1885; J2405; J3475; J7050; U0001